=== PATIENT | female | born 1955 | race Caucasian/White ===

== ENCOUNTER 2017-10-02 10:01 | Inpatient (IN) | payer BC ==
[~2017-10-02] VITALS: Ht 170.2 cm; Wt 87.5 kg
[~2017-10-02 10:01] MED LIST: COQ-10100 MG PO; ECHINACEA500 MG PO; INVOKANA300 MG PO; LANTUS100 UNITS/ SUB-Q; LISINOPRIL2.5 MG PO; METFORMIN HCL1000 MG PO; METROGEL55 GM TOP; MOBIC7.5 MG PO
[2017-10-02] MEDS ORDERED: TRESIBA FL100 UNIT/1 SUB-Q (12:11)
[2017-10-02] MEDS ORDERED: ALPHA LIPOIC A300 MG PO (12:12)
--- NOTE | 2017-10-02 12:50 | NUR ---
62 yr old female PATIENT ADMITTED TO CCU VIA STRETCHER UNDER DR. GOULD WITH DX OF AFIB/RVR HAS BEEN WITH INCREASED SHORTNESS OF BREATH OVER THE PAST 6 WEEKS. UPON ADMIT TO CCU PATIENT IS AWAKE AND ALERT. DENIES CHEST PAIN. IS SHORT OF BREATH WITH EXERTION.
--- NOTE | 2017-10-02 13:35 | NUR ---
TOOK SALAD WELL. STATES SHE FEELS SHORT OF BREATH.
--- NOTE | 2017-10-02 14:20 | NUR ---
ECHO BEING DONE AT BEDSIDE.
--- NOTE | 2017-10-02 14:55 | NUR ---
ECHO COMPLETE. O2 AT 2 L VIA NC APPLIED O2 SAT 89.
[2017-10-02] MEDS ORDERED: FARXIGA10 MG PO (15:56)
[2017-10-02] MEDS ORDERED: RED YEAST RICE600 MG PO (16:08)
--- NOTE | 2017-10-02 16:20 | NUR ---
up to commode to void. UPON RETURN TO BED IS WITH INCREASED SHORTNESS OF BREATH. USING ACM. CRACKLES BASES. DR. GOULD IS AWARE. LASIX 40 MG IV ORDERED.
--- NOTE | 2017-10-02 16:40 | NUR ---
LASIX 40 MG IV GIVEN. CPAP APPLIED WITH 3 L O2 BLED IN. IS ANXIOUS.
--- NOTE | 2017-10-02 16:45 | NUR ---
AFTER CPAP APPLIED IS MORE CALM AND MUCH LESS SHORT OF BREATH.
--- NOTE | 2017-10-02 16:55 | EKG ---
[facility] [address] [facility] [address] [place] [address] Signed Atrial fibrillation with rapid ventricular response Right axis deviation T wave abnormality, consider lateral ischemia Abnormal ECG No previous ECGs available Confirmed by SARAH GOULD MD ([id number]) on 10/02/2017 4:55:10 PM Electronically Signed By: SARAH GOULD MD 10/02/17 1655 PATIENT NAME: LEELA GUDINO Electrocardiogram DATE OF : 51 PHYSICIAN: SARAH GOULD MD REPORT #: [id number] REPORT IS CONFIDENTIAL AND NOT TO BE RELEASED WITHOUT AUTHORIZATION
--- NOTE | 2017-10-02 17:00 | NUR ---
ACCTERE-178. NOVOLOG INSULIN 3 UNITS SQ GIVEN. PT GAVE SELF INSULIN.
--- NOTE | 2017-10-02 17:15 | NUR ---
CPAP OFF NOW ON O2 VIA NC AT 3 L. PATIENT STATES SHE FEELS MUCH BETTER.
--- NOTE | 2017-10-02 17:27 | NUR ---
Medications reconciled using pharmacy records and patient interview
--- NOTE | 2017-10-02 19:30 | NUR ---
PATIENT RESTING QUIETLY WATCHING TV IN HER ROOM WE ARE GETTING REPORT.
--- NOTE | 2017-10-02 20:00 | NUR ---
PATIENT HAS BEEN UP TO THE BATHROOM AND AMBULATED INDEPENDANTLY WITH A NURSE STANDING BY. PATIENT A+O AND STEADY ON HER FEET.
--- NOTE | 2017-10-02 22:00 | NUR ---
PATIENT GETTING READY TO SLEEP, GIVEN MEDS, AND HOOKING UP HER OWN CPAP.VITALS HAVE BEEN STEADY.
--- NOTE | 2017-10-03 | NUR ---
PATIENT SLEEPING QUIETLY. RESPIRATIONS REGULAR ON HER CPAP.
--- NOTE | 2017-10-03 02:00 | NUR ---
PATIENT CONTINUES TO SLEEP QUIETLY WITH REGULAR RESPIRATIONS ON HER OWN CPAP WITH 2L OF O2 BLEED IN.
--- NOTE | 2017-10-03 05:26 | NUR ---
PT UP TO BR TO VOID 400ML. HR UP TO 90'S WITH AMBULATION. REPORTED FEELING A LITTLE LIGHTHEADED.
--- NOTE | 2017-10-03 10:39 | NUR ---
WILL BE TRANSFERRED TO MEDICAL FLOOR TODAY.
--- NOTE | 2017-10-03 11:57 | NUR ---
LEELA HAS BEEN A DIABETIC FOR MANY YEARS. SHE IS FAMILIAR WITH CARBS. SHE DOES NOT EAT PASTA. IF SHE WANTS WHEAT, SHE WILL HAVE A PIECE OF WHOLE GRAIN TOAST. SHE MAKES HER OWN GRANOLA USING OATS AND NUTS AND LOW SUGAR FLAVOR. I GAVE HER A FOLDER INCLUDING "HEART-FAILURE NUTRITION THERAPY" FROM THE [facility], LOW-SODIUM GROCERY SHOPPING LIST, SNACK LIST, LOW-SODIUM TACO SEASONING, AND LIST OF COOKBOOKS. I MENTIONED HER GOAL IS TO STAY UNDER 2000 MG OF SODIUM EVERY DAY. SHE WILL LOOK AT THE LABEL ON HER LOW-CARB TORTILLAS TO SEE HOW MUCH THEY HAVE IN THEM. SHE DOES NOT EAT PORK, THEREFORE RODRIGUEZ AND SAUSAGE ARE AVOIDED. SHE WILL EAT TURKEY RODRIGUEZ. SHE WILL LOOK AT THE SODIUM CONTENT OF THAT, TOO. I SAID TURKEY RODRIGUEZ CAN BE HIGHER IS SODIUM THAN REGULAR RODRIGUEZ! SO DEFINITELY LOOK AT THE LABEL. SHE APPRECIATED THE INFO TOO. SHE WILL DO FINE. SHE IS EXCITED TO TRY THE LOW SODIUM TACO SEASONING. SHE KNOWS HOW TO GET A HOLD OF ME IF SHE HAS MORE QUESTIONS.
--- NOTE | 2017-10-03 12:46 | NUR ---
PT RESTING IN CHAIR-ALERT AND ORIENTED. SHE IS FEELING MUCH BETTER, AND EXPRESSED GREAT SATISFACTION WITH THE CARE SHE HAS RECEIVED. WILL BE MOVING TO M\[place] LATER TODAY. THIS A\FIB IS NEW TO HER, AND SHE IS EXPRESSING DESIRE TO E VERY PROACTIVE IN CARE AND TREATMENT. PT REQUESTED PRAYER, WILL FOLLOW PT NEEDED
--- NOTE | 2017-10-03 13:50 | NUR ---
LEILA HEART FAILURE RN IN TALKING WITH PATIENT ABOUT CHF, CHF YONI WATCHED.
--- NOTE | 2017-10-03 13:55 | NUR ---
NAPPING. NO DISTRESS NOTED. FAMILY IN ROOM.
--- NOTE | 2017-10-03 14:15 | NUR ---
REPORT GIVEN TO [facility]. LASIX 40 MG IV REPEATED PER ORDERS.
--- NOTE | 2017-10-03 14:55 | NUR ---
PT WALKED FROM CCU TO 115 ON OWN. PT STATES SHE CAN FEEL HER HR IS UP A LITTLE VS STABLE THOUGH. HR 92. DENIES CONCERNS. AMBULATES TO BATHROOM INDEPENDENTLY.
--- NOTE | 2017-10-03 15:34 | NUR ---
PT HAS JUST BEEN CHECKED IN BY NURSE CABALLERO
--- NOTE | 2017-10-03 16:56 | NUR ---
PT WALKED IN HOLDEN SEVERAL LAPS AROUND THE UNIT. TOLERATED WELL. USED O2 CANISTER. WALKED WITH SISTER.
--- NOTE | 2017-10-03 18:34 | NUR ---
PT TRANSFERED FROM CCU THIS AFTERNOON. PT INDEPENDENT IN ROOM. WALKED IN HOLDEN. BS WNL. CALLS APPROP.
--- NOTE | 2017-10-03 18:53 | NUR ---
PT DOING WELL. UP IN CHAIR
--- NOTE | 2017-10-03 21:02 | NUR ---
NOTIFIED DR GOULD OF PT'S DECREASED BP. OKAY TO GIVE LOPRESSOR. NO NEW ORDERS AT THIS TIME.
--- NOTE | 2017-10-03 21:20 | NUR ---
PT SITTING UP IN CHAIR. ALERT AND ORIENTED X4. PT REPORTS "FEELING REALLY GOOD." NO SOB. NO EDEMA. GAVE FRESH ICE WATER. CALL LIGHT NEAR PT. NO FURTHER NEEDS AT THIS TIME.
--- NOTE | 2017-10-03 23:50 | NUR ---
PT APPEARS ASLEEP. LIGHTS AND TV OFF IN ROOM. CPAP IN PLACE.
--- NOTE | 2017-10-04 00:48 | NUR ---
PT APPEARS TO BE SLEEPING. CPAP IN PLACE. LIGHTS AND TV OFF IN ROOM.
--- NOTE | 2017-10-04 05:18 | NUR ---
PT HAD UNEVENTFUL NIGHT. NO COMPLAINTS. REPORTS FEELING WELL. INDEPENDANT IN ROOM. ALERT AND ORIENTED X4, PLEASENT DEMEANOR. NO SOB. SHOWERED THIS MORNING. TELE #4.
--- NOTE | 2017-10-04 07:24 | NUR ---
PT AWAKE AND SHOWERED ALREADY. STATES THAT SHE NORMALLY GETS UP BETWEEN 3 AND 4. WILL PUT ON PULSE OX TO HOPEFULLY TITRATE OFF O2 TODAY. PT STATES SHE IS GOING HOME TODAY.
--- NOTE | 2017-10-04 07:31 | NUR ---
PATIENT UP TO CHAIR EATING BREAKFAST. PATIENT SHOWERED EARLIER THIS AM. NO NEEDS AT THIS TIME.
--- NOTE | 2017-10-04 09:10 | NUR ---
ADMINISTERED MORNING MEDS. PT BP STILL SLIGHTLY LOW AT 104, ASYMPTOMATIC. NOVOLOG, LASIX AND POTASSIUM HELD. PT SITTING UP IN CHAIR.
--- NOTE | 2017-10-04 10:15 | NUR ---
30 minutes spent on reinforcing education initiated yesterday on self-care. Daily symptom monitoring and follow up appointments. 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 Given BID 7 day pill reminder box and rational for use. Follow up appointment made with Dr Velazco For 10/11/17 at noon. Discharge checklist initiated, recommend O2 check with patient ambulating on room before discharged.
--- NOTE | 2017-10-04 10:28 | NUR ---
PATIENT SITTING UP IN CHAIR VISITING WITH FRIEND. FRESH ICE WATER GIVEN NO OTHER NEEDS AT THIS TIME.
--- NOTE | 2017-10-04 10:35 | NUR ---
SPOKE WITH PT REGARDING STAYING ATLEAST ONE MORE DAY. PT UNDERSTANDS AND STATES SHE IS OK WITH IT. EDUCATED ON IMPORTANCE OF GETTING HER HR UNDERCONTROL WITH THE CORRECT DOSE OF MEDS.
--- NOTE | 2017-10-04 11:30 | NUR ---
PATIENT AMBULTED IN HALLWAY WITH THIS METER CHANGES RECORDS CLERK.
--- NOTE | 2017-10-04 11:37 | NUR ---
PT WALKING IN HOLDEN WITH DA KIM. PT TOLERATING WELL, HR REMAINING UNDER 100 AND SATS ARE IN LOW 90'S ON RA. STATES SHE IS "DOING BETTER THAN WHEN SITTING". HAS MADE 3 CIRCLES SO FAR.
--- NOTE | 2017-10-04 14:24 | NUR ---
PT SITTING IN CHAIR, LOOKS RESTED AND SAID SHE WAS FEELING MUCH BETTER. KNOWS SHE HAS SOME CARDIAC ISSLUES THAT SHE NEEDS TO TAKE CARE OF. SHE IS GOING HOME WITH HER SISTER TOMORROW. EXTENDED A BLESSING, WILL FOLLOW NEEDED
--- NOTE | 2017-10-04 14:41 | NUR ---
PATIENT UP IN THE CHAIR, WATER PITCHER FILLED UP FOR HER AT THIS TIME, PATIENT DENIES OTHER NEEDS.
--- NOTE | 2017-10-04 15:03 | NUR ---
PT SITTING UP IN CHAIR VISITING WITH FRIEND. ADMINISTERED LASIX. PT HOMAR SCHILLING.S
--- NOTE | 2017-10-04 15:07 | NUR ---
PATIENT SITTING UP IN CHAIR VISITING WITH A FRIEND. NO OTHER NEEDS AT THIS TIME.
--- NOTE | 2017-10-04 17:12 | NUR ---
PATIENT UP AMBULATING IN THE HALLWAY. FRESH ICE WATER GIVEN.
--- NOTE | 2017-10-04 18:01 | NUR ---
PT WALKING IN HALLWAYS. TOLERATING WELL. SATS HOLDING. ADMINISTERED ONE UNIT INSULIN.
--- NOTE | 2017-10-04 19:15 | NUR ---
RECEIVED REPORT FROM DAY SHIFT RN. PATIENT IS UP WALKING IN THE ROOM. PATIENT IS STEADY ON HER FEET. PATIENT DENIES ANY NEEDS AT THIS TIME. CALL LIGHT IN REACH.
--- NOTE | 2017-10-04 20:00 | NUR ---
patient in bed doing well. whiteboard updated, room tidied. patient declined fresh ice water
--- NOTE | 2017-10-04 21:51 | NUR ---
PATIENT ASSESMENT COMPLETED. PATIENTS BP IS ON THE LOWER END. PLACED CALL TO HOSPITALIST, GOT VERBAL CONFORMATION TO GO AHEAD AND GIVEN LOPRESSOR. ALL EVENING MEDCIATIONS GIVEN PER ORDER. RT IN THE ROOM AND ASSISTED IN MAKING SURE PATIENTS HOME CPAP IS SET UP. PATIENT DENIES ANY NEEDS AT THIS TIME. CALL LIGHT IS WITHIN REACH.
--- NOTE | 2017-10-05 | NUR ---
patient asleep in bed. does not need anything at this time.
--- NOTE | 2017-10-05 00:12 | NUR ---
PATIENT IS RESTING IN BED WITH EYSE CLOSED, RR 17. PATIENT IS WEARING HOME CPAP. CALL LIGHT IN REACH.
--- NOTE | 2017-10-05 01:14 | NUR ---
PT IS SLEEPING AT THIS TIME.
--- NOTE | 2017-10-05 02:21 | NUR ---
PATIENT ASLEEP IN BED.
--- NOTE | 2017-10-05 03:33 | NUR ---
PT IS AWAKE IN BED READING A BOOK. PT HAS NO COMPLAINTS AT ALL AT THIS TIME. ALL LOBES ARE CLEAR AT THIS TIME, PT DENIES SOB AND PAIN. NO NEW CONCERNS AT THIS TIME.
--- NOTE | 2017-10-05 04:15 | NUR ---
PATIENT ASLEEP IN BED. DOES NOT NEED ANYTHING AT THIS TIME.
--- NOTE | 2017-10-05 06:13 | NUR ---
V/S ARE WDL, PT DENIED SOB SINCE I HAVE ASSUMED CARE OF HER AT ABOUT 0015. ALL LOBES WERE CLEAR FOR MY ASSESSMENT. PT SEEMED TO HAVE SLEPT MOST OF THIS SHIFT. BG AT 2100 WAS 291 AND RECEIVED 7 UNITS OF NOVOLOG FROM PREVIOUS RN. AT AROUND 0530 PT STATED TO ME THAT HER SISTER CONTRACTED LICE FROM THE COUCH IN HER ROOM, AND THAT SHE WANTED IT TREATED WITH SOMETHING. AFTER TALKING TO WHEAT GROWER AND DOING SOME LICE LIFE CYCLE RESEARCH ON THE [employer] WEBSITE I WENT BACK TO THE ROOM TO INFORM THE PT THAT WE WILL TREAT THE COUCH BUT THAT THERE IS A GOOD POSSIBILITY THAT HER SISTER CONTRACTED THE HEAD LICE SOMEWHERE OTHER THAN THE COUCH IN ROOM 115. PT AT THAT TIME STATED THAT HER SISTER CONTRACTED HER HEAD LICE FORM THE HOTEL BUT SHE JUST WANTED TO INFORM US SINCE HER SITSTER HAD LAID HER HEAD DOWN ON THE COUCH. ENVIRONMENTAL SERVICES WILL CLEAN THE COUCH THIS MORNING.
--- NOTE | 2017-10-05 07:40 | NUR ---
BEDSIDE REPORT RECEIVED FROM YANI. PATIENT AWAKE SITTING IN BED. DENIED ANY SOB, NAUSEA OR PAIN. NO APPARENT DISTRESS NOTED. CBG TAKEN. PATIENT IS EATING BREAKFAST AT THIS TIME, SISTER AT BEDSIDE.
--- NOTE | 2017-10-05 07:54 | NUR ---
REPORT RECEIVED FROM HERLINDA. PATIENT RESTING IN BED APPEARS TO BE ASLEEP. RR EVEN/UNLABORED. NO APPARENT DISTRESS NOTED.
--- NOTE | 2017-10-05 08:31 | NUR ---
IN TO ROOM TO ASSESS PATIENT. PATIENT REPORTS NO PAIN, NO SOB. SHIF ASSESSMENT DONE. NO PERIPHERAL EDEMA, LUNGS CLEAR. HR IRREGULAR. PATIENT DENIES ANY DISCOMFORT. MORNING MEDS ADMINISTERED. PATIENT RESTING IN BED WATCHING TV.
--- NOTE | 2017-10-05 10:05 | NUR ---
PT IS SITTING UP IN BED SAFELY WITH CALL LIGHT IN REACH. PT HAS ALREADY SHOWERED EARLIER THIS MORNING AND HAS WALKED A TOTAL OF 4 LAPS . PT ASKED FOR MORE ICE WATER
[2017-10-05] MEDS ORDERED: ELIQUIS5 MG PO (11:26)
[2017-10-05] MEDS ORDERED: METOPROLOL SUC200 MG PO (11:27)
[2017-10-05] MEDS ORDERED: TORSEMIDE20 MG PO (11:30)
[2017-10-05] MEDS ORDERED: POTASSIUM CHLO20 ME1 PO (11:38)
--- NOTE | 2017-10-05 12:39 | NUR ---
PT SITTING ON SIDE OF BED, VISITING WITH HER SISTER FIDENCIO. SHE EXPECTS TO BE DC'D TODAY. SAYS SHE IS FEELING GREAT. GOOD VISIT, EXTENDED A BLESSING.
--- NOTE | 2017-10-09 12:04 | NUR ---
Follow up call completed. Prachi states she has been feeling really good but is tired today. She believes that is a side effect-discussed the effect of beta familia and encouraged patient to get through this phase and continue medication. She has picked up new scripts including Torsemide. Has been monitoring weights QA and has loss more weight. Today's weight #182. She agrees to attend follow up appointment with PCP. Has been working on low sodium diet and verbalized understanding of need to decrease processed high salt foods. She is interested in monitoring her afib at home, recommended she look on line for FDA approved devices for smart phone that she can share data with her physician. She will call back in 6 weeks if released for cardiac rehab program.
== END 2017-10-05 12:20 | disposition home or self-care (01) | DRG 310 ==
LOC: ED 10:01 → CCU 12:26 → MS 10-03 14:35
PROVIDERS: ADMIT Internal Medicine
DX: I48.0 Paroxysmal atrial fibrillation (principal); E11.9 Type 2 diabetes mellitus without complications; Z79.4 Long term (current) use of insulin; G47.33 Obstructive sleep apnea (adult) (pediatric); E78.5 Hyperlipidemia, unspecified; I50.9 Heart failure, unspecified
CPT/HCPCS: 36415; 71010; 80048; 80053; 80069; 81001; 83735; 83880; 84484; 85025; 85610; 93005; 93010; 93306; 96374; 96375; 99285

== ENCOUNTER → 2018-02-17 | Emergency (ER) | payer BC ==
[~2018-02-17] VITALS: Ht 170.2 cm; Wt 87.5 kg
[~2018-02-17] MED LIST changes: +ALPHA LIPOIC A300 MG PO; +ATORVASTATIN CA10 MG PO; +ELIQUIS5 MG PO; +FARXIGA10 MG PO; +METOPROLOL SUC200 MG PO; +POTASSIUM CHLO20 ME1 PO; +RED YEAST RICE600 MG PO; +TORSEMIDE20 MG PO; +TRESIBA FL100 UNIT/1 SUB-Q
--- OUTSIDE RECORDS SUMMARY | ~2018-02-17 | XMS | Encounter Summary ---
Demographics + + + | Address | [address] | | | [place] [address] | + + + | Home Phone | | + + + | Preferred Language | Unknown | + + + | Marital Status | Single | + + + | Quaker Affiliation | 1001 | + + + | Race | Unknown | + + + | Ethnic Group | Unknown | + + + Author + + + | Author | [facility] | | | and [place] | + + + | Organization | [facility] | | | and [...] [address] | | | | | [place] [address] | | + + + + + Care Team Providers + +------+ + | Care Teletypesetter Operator Name | Role | Phone | + +------+ + | Chris Swanson DO | PCP | Unavailable | + +------+ + Reason for Visit Auth/Cert +--------+--------+ + + + + | Status | Reason | Specialty | Diagnoses / | Referred By | Referred To | | | | | Procedures | Contact | Contact | +--------+--------+ + + + + | | | | Diagnoses | | [place], | | | | | Atrial | | Sheri Howell MD | | | | | fibrillation | | [address] | | | | | , | | [address] | | | | | unspecified | | [place] | | | | | type (HCC) | | [phone] Phone: | | | | | Atrial | | [phone] | | | | | fibrillation | | Fax: | | | | | , | | [phone] | | | | | unspecified | | | | | | | type (HCC) | | | | | | | [I48.91] | | | | | | | Procedures | | | | | | | NC | | | | | | | CARDIOVERSIO | | | | | | | N ELECTIVE | | | | | | | ARRHYTHMIA | | | | | | | EXTERNAL NC | | | | | | | ECHO | | | | | | | TRANSESOPHAG | | | | | | | R-T 2D | | | | | | | W/PRB IMG | | | | | | | ACQUDANA I&R | | | +--------+--------+ + + + + Encounter Details +--------+ + + + + | Date | Type | Department | Care Team | Description | +--------+ + + + + | 01/08/ | Anesthesia | [facility] | Tomas Beyer, | | | 2018 | Event | [facility] | [facility] [address] | | | | | ADMIT AND RECOVERY | [place] [address] | | | | | [address] | [phone] | | | | | [place], [place] | | | | | | [address] | | | | | | [phone] | | | +--------+ + + + + Anesthesia Record + + + + + | Procedure Name | Responsible | Anesthesia Start | Anesthesia Stop Time | | | Anesthesiologist | Time | | + + + + + | ECHO - | Tomas Beyer CRNA | 01/08/18 1329 | 01/08/18 1345 | | TRANSESEOPHAGEAL/CAR | | | | | DIOVERSION | | | | | ([id number]) (N/A | | | | | Mouth) | | | | + + + + + +----+---+ + + | Da | T | Event | Comment | | te | i | | | | | m | | | | | e | | | +----+---+ + + | 03 | 1 | An Start | Reassessment prior to anesthesia induction/procedure. | | /1 | 3 | | | | 9/ | 2 | | | | 20 | 9 | | | | 18 | | | | +----+---+ + + | | 1 | Pre-Procedu | | | | 3 | ral Timeout | | | | 3 | Completed | | | | 3 | | | +----+---+ + + | | 1 | Preoxygenat | | | | 3 | ed | | | | 3 | | | | | 3 | | | +----+---+ + + | | 1 | An | | | | 3 | Induction | | | | 3 | | | | | 3 | | | +----+---+ + + | | 1 | GOLDEN Probe | | | | 3 | Placement | | | | 3 | | | | | 4 | | | +----+---+ + + | | 1 | GOLDEN Probe | | | | 3 | Removed | | | | 3 | | | | | 7 | | | +----+---+ + + | | 1 | Cardioversi | Unsuccesful at 300 | | | 3 | on | | | | 3 | | | | | 7 | | | +----+---+ + + | | 1 | Cardioversi | Unsuccessful 200J | | | 3 | on | | | | 3 | | | | | 7 | | | +----+---+ + + | | 1 | Cardioversi | Unsuccesful at 360 | | | 3 | on | | | | 3 | | | | | 8 | | | +----+---+ + + | | 1 | Moving | | | | 3 | Purposefull | | | | 4 | y | | | | 4 | | | +----+---+ + + | | 1 | An Stop | Patient handed off to nurseSavage VSS, maintaining patent airway. | | | 3 | | Conversant w staff. Neuro exam negative | | | 5 | | | +----+---+ + + +------+ | Meds | +------+ + +--------+ | Name | Total | + +--------+ | lidocaine 2% | 40 mg | + +--------+ | propofol | 100 mg | + +--------+ | sodium chloride 0.9% (NS) | 250 mL | | infusion | | + +--------+ + + | Name | + + | O2 Flow Rate (L/Min) | + + + + | No blood administrations on file. | + + +--------+ + + + | Type | Details | Placement | Removal | +--------+ + + + | Periph | 01/08/18; 1120; Right; Posterior | 01/08/18 1120 by | 01/08/18 1520 by | | renel | (dorsal); Hand; [id number] | Rika Hutson | Rika Hutson | | IV | catheter system; 20 gauge, 1 in | Avelino RN | ONIEL You | | | length; Chemistry; 0; intradermal | | | | | injection, tolerated well, | | | | | appears comfortable; no longer | | | | | indicated, site care per | | | | | policy/procedure, catheter/device | | | | | intact; healing within | | | | | expectations; 01/08/18; 1520 | | | +--------+ + + + in this encounter Social History + +-------+ +--------+------+ | Tobacco Use | Types | Packs/Day | Years | Date | | | | | Used | | + +-------+ +--------+------+ | Never Smoker | | | | | + +-------+ +--------+------+ + +---+---+---+ | Smokeless Tobacco: | | | | | Never Used | | | | + +---+---+---+ + + +---------+ + | Alcohol Use [...] on file | | + + + as of this encounter Plan of Treatment +--------+ + + + + | Date | Type | Specialty | Care Team | Description | +--------+ + + + + | 02/21/ | Office | Cardiology | [place] | | | 2018 | Visit | | TASHA Funes [address] | | | | | | [place] [address] | | | | | | [phone] | | | | | | | | +--------+ + + + + | 03/26/ | Appointment | Radiology | Sheri Hernandez | | | 2017 | | | MD Dante [address] | | | | | | [address] [place] | | | | | | [address] | | | | | | | | +--------+ + + + + | 03/26/ | Office | Cardiology | Sheri Hernandez | | | 2017 | Visit | | MD Dante [address] | | | | | | [address] [place] | | | | | | [address] | | | | | | | | +--------+ + + + + | 06/11/ | Office | Sleep Medicine | Janay Kapoor MD | | | 2017 | Visit | | [address] | | | | | | [place] | | | | | | [phone] | | | | | | | | +--------+ + + + + as of this encounter Visit Diagnoses Not on filein this encounter Administered Medications + +--------+ +-------+------+------+ | Medication Order | MAR | Action | Dose | Rate | Site | | | Action | Date | | | | + +--------+ +-------+------+------+ | lidocaine (PF) 2% injection | Given | | 40 mg | | | | Intravenous, PRN, Starting Mon | | 8 13:33 | | | | | 01/08/18 at 1333, Anesthesia | | PDT | | | | | Intra-op | | | | | | + +--------+ +-------+------+------+ +---+---+ | | | +---+---+ + +-------+ +-------+---+---+ | propofol (DIPRIVAN) injection | Given | | 50 mg | | | | Intravenous, PRN, Starting Mon | | 8 13:33 | | | | | 18 at 1333, Anesthesia | | PDT | | | | | Intra-op | | | | | | + +-------+ +-------+---+---+ +-------+ +-------+---+---+ | Given | | 30 mg | | | | | 8 13:34 | | | | | | PDT | | | | +-------+ +-------+---+---+ | Given | | 20 mg | | | | | 8 13:37 | | | | | | PDT | | | | +-------+ +-------+---+---+ +---+---+ | | | +---+---+ + +---------+ +---+---+---+ | sodium chloride 0.9% (NS) | New Bag | | | | | | infusion at 100 mL/hr, | | 8 13:17 | | | | | Intravenous, INTELLECTUAL PROPERTY COUNSEL, Starting | | PDT | | | | | 01/08/18 at 1103, For 1 dose, | | | | | | | Pre-op | | | | | | + +---------+ +---+---+---+ +---+---+ | | | +---+---+ in this encounter"
--- OUTSIDE RECORDS SUMMARY | ~2018-02-17 | XMS | Encounter Summary ---
Demographics + + + | Address | [address] | | | [place] [address] | + + + | Home Phone | | + + + | Preferred Language | Unknown | + + + | Marital Status | Single | + + + | Mormon Affiliation | 1001 | + + + | Race | Unknown | + + + | Ethnic Group | Unknown | + + + Author + + + | Author | [facility] | | | and [place] | + + + | Organization | [facility] | | | [...] | Ata Stephens | ECON | [address] | | | | | [place] [address] | | + + + + + Care Team Providers + +------+ + | Care Senior Network Security Engineer Name | Role | Phone | + +------+ + | Chris Swanson DO | PCP | Unavailable | + +------+ + Reason for Visit + + + | Reason | Comments | + + + | New Patient | atrial fibrillation | + + + Evaluate & Treat (Routine) + +--------+ + + + + | Status | Reason | Specialty | Diagnoses / | Referred By | Referred To | | | | | Procedures | Contact | Contact | + +--------+ + + + + | Authorized | | Cardiology | Diagnoses | Kiki, | Johnh Lexi | | | | | Atrial | Chris Hutson, | Cardiology | | | | | fibrillation | DO [address] | [place] | | | | | ([facility]) afib | [address] [facility] | [address] | | | | | Procedures | [place], [place] | [address] [place] [address] | | | | | WEAVING PROFESSOR consult | [address] | [place] | | | | | | Phone: | [phone] | | | | | | [phone] | Phone: | | | | | | Fax: | [phone] | | | | | | [phone] | Fax: | | | | | | | [phone] | + +--------+ + + + + Encounter Details +--------+---------+ + + + | Date | Type | Department | Care Team | Description | +--------+---------+ + + + | 12/27/ | Office | [place] | Sheri Hernandez | Atrial fibrillation, | | 2018 | Visit | CARDIOLOGY [facility] | MD Dante [address] | unspecified type | | | | [place] | [address] [place] | (HCC) (Primary Dx); | | | | [address] [place] | [address] | Cardiomyopathy, | | | | [address] | | unspecified type | | | | [phone] | | (HCC); | | | | | | Hyperlipidemia, | | | | | | unspecified | | | | | | hyperlipidemia type | +--------+---------+ + + + Social History + +-------+ +--------+------+ [...] + + + as of this encounter Last Filed Vital Signs + + + + | Vital Sign | Reading | Time Taken | + + + + | Blood Pressure | 104/72 | 12/27/2017910 PST | + + + + | Pulse | 79 | 12/27/2017910 PST | + + + + | Temperature | - | - | + + + + | Respiratory Rate | - | - | + + + + | Oxygen Saturation | - | - | + + + + | Inhaled Oxygen | - | - | | Concentration | | | + + + + | Weight | 91.2 kg (201 lb) | 12/27/2017910 PST | + + + + | Height | 171.5 cm (5' 7.5") | 12/27/2017910 PST | + + + + | Body Mass Index | 31.02 | 12/27/2017910 PST | + + + + in this encounter Instructions Patient Instructions - Rochelle Coreas RN - 12/27/2017 09 PSTStart Lipitor 10 mg nigh tly. Type of Procedure: GOLDEN/Cardioversion Procedure Date & Time: 01/08/18 at 1:[address] Hernandez Check-in Time: 11:00 am (2 hours prior to procedure or 3-4 hours for hydration/Vancomycin/c omplexity-MIDDLEWARE CONSULTANT, IV Starts, admit paperwork, labs) Location: [facility] at [address] (5th floor [address]) [place] [address] Anticipated recovery: You will receive light sedation during your procedure therefore you must have an escort imm ediately available at discharge and for 24 hours following. Patients will not be discharged without a designated haul truck driver. We anticipate you to be discharged to home 1-2 hours after the procedure or possibly an overnight stay in the hospital for medical observation. The sarabjit foster may encourage you to stay locally if you live greater than 60 miles from [place] after y our procedure. Medication instructions: DO NOT stop your Eliquis. Make sure to take it the morning of the procedure. You may take all of your normal medications with a sip of water only the morning of the pro cedure except the following medications: torsemide and potassium In anticipation of a possible overnight stay, please bring your medications along with you. Additional instructions: Nothing to eat or drink after 5:00 am. Please do not use nicotine, vape, or e-cigarettes after 5:00 am. Please shower the night before or morning of procedure. in this encounter Progress Notes Sheri Hernandez MD - 12/27/2017 0900 PSTFormatting of this note may be different from t ilana original. PATIENT NAME: Prachi Overton : 1955: AGE: 62 y.o. PRIMARY CARE: Chris Swanson Date of Service: 12/27/2017 CHIEF COMPLAINT: Chief Complaint Patient presents with New Patient atrial fibrillation CURRENT ASSESSMENT AND PLAN Atrial fibrillation AF persists although with good rate control. I think it is worth trying to cardiovert her. Plan: GOLDEN/CV is scheduled for next week Cardiomyopathy Hopefully this is a tachycardia induced CM and will resolve with rate control. We will loo k at her LV function with the GOLDEN when she undergoes CV. Hyperlipidemia We discussed the merits of a statin, she is actually amenable to trying one. Plan: Lipitor 10mg daily Repeat lipids with PCP in 3 months CARDIAC PROBLEM OVERVIEW 1. Congestive heart failure CXR 11/01/17 - cardiac silhouette enlarged, question congestive failure Torsemide 20 mg qd ECHO 10/05/17 - mild LVE with EF 35-40%, global hypokinesis. 2. Atrial fibrillation Eliquis 5mg bid Metoprolol 200 qhs 3. Hypertension 4. Diabetes mellitus Type 2 5. Sleep Apnea 6. Hyperlipidemia Red yeast rice 600 mg bid FOLLOWUP GOLDEN/CV as scheduled MEDICATION ADJUSTMENTS New Prescriptions ATORVASTATIN (LIPITOR) 10 MG TABLET Take 1 tablet by mouth Daily. Medications Discontinued During This Encounter Medication Reason Ascorbic Acid (VITAMIN C) 100 MG tablet Patient Not Taking Calcium Carbonate-Vitamin D (CALCIUM PLUS VITAMIN D PO) Patient Not Taking cholecalciferol (VITAMIN D-3) 400 units tablet Patient Not Taking metformin (GLUCOPHAGE) 1000 MG tablet Patient Not Taking NEW ORDERS Orders Placed This Encounter Procedures ECG 12 lead HISTORY OF PRESENT ILLNESS 62 y.o. year old female with recent hospitalization for CHF in the setting of AF RVR. Dr. Swanson requests evaluation and management. Pt presented to [facility] 3 months ago with 6 weeks of dyspnea. She was found to be in AF RVR and to have CHF. EKG was abnormal showing anterolateral T wave inversion, troponins were negative, BNP only mildly elevated at 296. An echo was performed demonstratin g mild LVE with EF 35-40%, global hypokinesis. This also showed a myxomatous appearing mitr al valve with moderate regurgitation. PA pressures were normal, RV was normal. Moderate LA E. She was seen in follow up 1 week later by her PCP; the note states CHF resolved but does not mention if AF persisted. Prior to this she had a cardiac history of ASD repaired at age 16. She was followed by the same director of federal sales with annual echos until 2015. Unfortunately those records were not avail able to us. She states that her EKG has been abnormal since the ASD repair. She had a work up for chest pain in 2012 which was reportedly unremarkable and eventually attributed to ch olecystitis. She has not had chest pain as part of this presentation. Her cardiac risk factors are DM, hyperlipidemia and obesity. Her family history is notable for a brother who from complications of what sounds like a non ischemic cardiomyopathy . At this time she states that she feels wonderful. She has no dyspnea whatsoever and is abdoulaye hartman that she is in AF. She is compliant with her anticoagulation. MEDICAL, SURGICAL, AND PERSONAL HISTORY Past Medical, Surgical, Family, and Social History are reviewed and updated 12/27/2017 in EPI C. CURRENT MEDICATIONS Outpatient Encounter Prescriptions as of 12/27/2017 Medication Sig Dispense Refill Alpha-Lipoic Acid 300 MG CAPS Take 600 mg by mouth Daily. apixaban (ELIQUIS) 5 mg tablet Take 5 mg by mouth 2 times daily. [DISCONTINUED] Ascorbic Acid (VITAMIN C) 100 MG tablet Take 400 mg by mouth Daily. atorvaSTATin (LIPITOR) 10 mg tablet Take 1 tablet by mouth Daily. 90 tablet 3 B Complex Vitamins (B COMPLEX 50) TABS Take 1 tablet by mouth Daily. [DISCONTINUED] Calcium Carbonate-Vitamin D (CALCIUM PLUS VITAMIN D PO) Take 1 tablet by mouth Daily. [DISCONTINUED] cholecalciferol (VITAMIN D-3) 400 units tablet Take 400 Units by mouth D aily. Coenzyme Q10 (CO Q-10) 100 MG CAPS Take 2 capsules by mouth Daily. dapagliflozin (FARXIGA) 10 mg tablet Take 10 mg by mouth every morning. ECHINACEA EXTRACT PO Take by mouth as needed. ibuprofen (ADVIL,MOTRIN) 800 MG tablet Take 800 mg by mouth as needed for Pain. insulin degludec (TRESIBA FLEXTOUCH) 100 units/mL injection Inject 38 Units under the s kin nightly. [DISCONTINUED] metformin (GLUCOPHAGE) 1000 MG tablet Take 1,000 mg by mouth 2 times maximilian ly. (Patient not taking: Reported on 12/27/2017) metoprolol succinate (TOPROL-XL) 200 mg ER tablet Take 200 mg by mouth nightly. metroNIDAZOLE (METROGEL) 1 % gel Use as directed potassium chloride (KLOR-CON M20) 20 mEq ER tablet Take 20 mEq by mouth Daily. Red Yeast Rice 600 MG CAPS Take 1 capsule by mouth 2 times daily. Respiratory Therapy Supplies [facility] ResMed S10 auto CPAP 7-14 cm H2O. Heater and Humidifi er. Heated Tubing. All necessary supplies. She will have a mask fit appt here to see if we c an find a better fitting mask for her. AHI 13.3. Diagnosis Code(s) 327.23. Length of Need 99 months. Please send order to [facility]. 1 each 99 torsemide (DEMADEX) 20 mg tablet Take 20 mg by mouth every morning. No facility-administered encounter medications on file as of 12/27/2017. Please note [facility] has a flaw in which medication corrections are listed as if they were disc ontinued at the time of the visit. I did not "discontinue" any the above medications unless noted in my assessment and plan; rather the patient was either not on these medications upon arrival today or I made refills or dose adjustments as otherwise noted. ALLERGIES Allergies Allergen Reactions Statins Severe muscle pain ROS 12 point ROS was completed and is negative except fatigue, headaches, hearing loss, cough, urgency, frequency and dizziness. PHYSICAL EXAM BP 104/72 Comment: left | Pulse 79 Comment: per EKG | Ht 1.715 m (5' 7.5") | Wt 91.2 kg (2 01 lb) | BMI 31.02 kg/m Body mass index is 31.02 kg/m. GENERAL: pleasant, well appearing HEENT: The oropharynx and conjunctivae are clear. Mucous membranes moist. EEOMI. NECK: Supple. Carotids are 2+ and brisk bilaterally without bruits. CHEST: Good inspiratory effort with no crackles, ronchi, or wheezes. CARDIAC: Irregularly irregular rhythm. No murmur, rubs, or gallops. ABDOMEN: Obese. Soft, non-tender, nondistended with normal, active bowel sounds. Unable to palpate abdominal aorta. EXTREMITIES: No clubbing, cyanosis, or edema. PULSES: Boots on - unable to palpate PT pulses NEUROLOGIC: Alert and oriented 3/3, Mood and affect are normal SKIN: No rashes or skin breakdown. MUSCULOSKELETAL: normal ambulation LABS No results found for: WBC, HGB, HCT, PLT, CHOL, TRIG, HDL, ALT, AST, NA, K, CL, CREA, BUN, CO2, TSH, PSA, INR, GLUF EKG: Atrial fibrillation rate 79 bpm, diffuse T-wave inversions in all leads except AVL and AVR Thank you for allowing me to participate in the care of this patient. If you have any ques tions, please do not hesitate to contact me. By signing my name below, I, Thelma Álvarez, attest that this documentation has been prepared under the direction and in the presence of Sheri Hernandez MD. Electronically Signed: Ellie Bear. 12/27/2017. 18:40. Signed by: Sheri Hernandez MD, [facility] 12/27/2017, 18:40in this encounter Plan of Treatment +--------+ + + + + | Date | Type | Specialty | Care Team | Description | +--------+ + + + + | 02/21/ | Office | Cardiology | [place] | | | 2017 | Visit | | TASHA Funes [address] | [address] | | | | | | [place] [address] | | | | | | [phone] | | | | | | | | +--------+ + + + + | 03/26/ | Appointment | Radiology | Sheri Hernandez | | | 2017 | | | MD Robert Howell [address] | | | | | | [address] [place] | | | | | | [address] | | | | | | | | +--------+ + + + + | 03/26/ | Office | Cardiology | Sheri Hernandez | | | 2017 | Visit | | MD Dante [address] | | | | | | [address] [place] | | | | | | [address] | | | | | | | | +--------+ + + + + | 06/11/ | Office | Sleep Medicine | Janay Kapoor MD | | | 2017 | Visit | | [address] | | | | | | [place] | | | | | | [address] | | | | | | | | +--------+ + + + + as of this encounter Results ECG 12 lead (12/27/2017 0900) + + | Narrative | + + | Cecil Cerrato CMA 12/27/2017 8:58 See scanned tracing for the provider's | | interpretation of EKG. | + + ECG - EXTERNAL SCAN (12/27/2017) + + | Narrative | + + | Ordered by an unspecified provider. | + + in this encounter Visit Diagnoses + + | Diagnosis | + + | Atrial fibrillation, unspecified type (HCC) - Primary | + + | Cardiomyopathy, unspecified type (HCC) | + + | Hyperlipidemia, unspecified hyperlipidemia type | + +
--- OUTSIDE RECORDS SUMMARY | ~2018-02-17 | XMS | Encounter Summary ---
Demographics + + + | Address | [address] | | | [place] [address] | + + + | Home Phone | | + + + | Preferred Language | Unknown | + + + | Marital Status | Single | + + + | Yarsani Affiliation | 1001 | + + + | Race | Unknown | + + + | Ethnic Group | Unknown | + + + Author + + + | Author | [facility] | | | and [place] | + + + | Organization | [facility] | | | and [...] | | | | | [place] [address] | | + + + + + Care Team Providers + +------+ + | Care Technical Sales Support Specialist Name | Role | Phone | + +------+ + | Chris Swanson DO | PCP | Unavailable | + +------+ + Reason for Visit +--------+ + | Reason | Comments | +--------+ + | Other | | +--------+ + Encounter Details +--------+ + + + + | Date | Type | Department | Care Team | Description | +--------+ + + + + | 02/14/ | Telephone | [place] | Sheri Hernandez | Other | | 2018 | | CARDIOLOGY [facility] | MD Dante [address] | | | | | [place] | [address] [place] | | | | | [address] [place] | [address] | | | | | [address] | | | | | | [phone] | | | +--------+ + + + + Social History + +-------+ [...] | | | | | [place] [address] | | | | | | [phone] | | | | | | | | +--------+ + + + + | 03/26/ | Appointment | Radiology | Sheri Hernandez | | | 2017 | | | MD Dante [address] | | | | | | [address] [place] | | | | | | [address] | | | | | | | | +--------+ + + + + | 03/26/ | Office | Cardiology | Sheri Hernandez | | | 2017 | Visit | | MD Dante [address] | | | | | | [address] [place] | | | | | | [address] | | | | | | | | +--------+ + + + + | 06/11/ | Office | Sleep Medicine | Janay Kapoor MD | | | 2017 | Visit | | [address] | | | | | | [place] | | | | | | [address] | | | | | | | | +--------+ + + + + as of this encounter Visit Diagnoses Not on filein this encounter"
--- OUTSIDE RECORDS SUMMARY | ~2018-02-17 | XMS | Clinical Summary ---
Demographics + + + | Address | [address] | | | [place] [address] | + + + | Home Phone | | + + + | Preferred Language | Unknown | + + + | Marital Status | Single | + + + | Nondenominational Affiliation | 1001 | + + + | Race | Unknown | + + + | Ethnic Group | Unknown | + + + Author + + + | Author | [facility] | | | and Kevonana | + + + | Organization | [facility] | | | and [...] + + + + + | Ata Stehpens | ECON | [address] | | | | | [place] [address] | | + + + + + Care Team Providers + +------+ + | Care Branding Machine Tender Name | Role | Phone | + [...] | | 2017 | Event | | MACHINING MANAGER | | +--------+ + + + + | 01/08/ | Procedure | | | | | 2017 | Pass | | | | +--------+ + + + + | 01/08/ | Surgery | | Sheri Hernandez | ECHO - | | 2017 | | | MD Dante | TRANSESEOPHAGEAL/CAR | | | | | | DIOVERSION | | | | | | ([id number]) | +--------+ + + + + | [...] | Mother | | | stroke and [place] | | | | (Age | | [...] | | | | | [place] [address] | | | | | | [phone] | | | | | | | | +--------+ + + + + | 03/26/ | Appointment | | Sheri Hernandez | | | 2017 | | | MD [place] [address] | | | | | | [address] [place] | | | | | | [address] | | | | | | | | +--------+ + + + + | 03/26/ | Office | | Sheri Hernandez | | | 2017 | Visit | | MD [place] [address] | | | | | | [address] [place] | | | | | | [address] | | | | | | | | +--------+ + + + + | 06/11/ | Office | | Janay Kapoor MD | | | 2018 | Visit | | [address] | | | | | | [place] | | | | | | [address] | | | | | | | [...] | | unspecified type | | | ([id number]) | | | (HCC) | | + [...] + + + | | NNEKA ESCOBAR [address] [place] [address] [place] [address] | + + + + + | Narrative | + + | HEART RATE:78 bpm RR Interval:769 ms Atrial Rate:78 ms P-R Interval:163 ms P | | Duration:0 ms P Horizontal Christopher:-12 deg P Front Christopher:0 deg Q Onset:516 ms QRSD | | Interval:92 ms QT Interval:404 ms QTcB:461 ms QTcF:441 ms QRS Horizontal Christopher:15 deg | | QRS Christopher:91 deg I-40 Horizontal Christopher:42 deg I-40 Front Christopher:70 deg T-40 Horizontal | | Christopher:250 deg T-40 Front Christopher:215 deg T Horizontal Christopher:235 deg T Wave Christopher:258 deg | | S-T Horizontal Christopher:227 deg S-T Front Christopher:254 deg Severity:- ABNORMAL ECG - | | [...] СВЕТЛАНА SMART | | OTONIEL Patient Number [id number] Date | | of Study 01/08/2018 Visit Number [id number] | | Interpreting David | | Sheri RASMUSSEN Number | | Physician FAC Date of | | 1955 Referring Physician Sheri Hernandez MD | | | | [facility] Age 62 | | 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..] | Electronically signed by Sheri Hernandez MD [facility](Interpreting physician) | | on 01/08/2018 03:14 [...] | Electronically signed by Sheri Hernandez MD [facility] physician) | | on 01/08/2018 03:14 PM [...] Laboratory | + + + | | [facility] [address] | | | [place] [address] | + + + Basic Metabolic Panel [...] + -----+ | GLUCOSE | 123 (H)Comment: Surinamese Diabetes | 65 - 99 mg/dL | [...] | + + + | Blood | [facility] [address] | | | [place] [address] | + + + ECG 12 lead [...] | 1954 | [phone] | [place] [address] | | | mishel | | | [address]: | | | | | | | | | | | | | | [phone] | | | | | | | [address] | | + +--------+ +--------+ + +
--- OUTSIDE RECORDS SUMMARY | ~2018-02-17 | XMS | Encounter Summary ---
Demographics + + + | Address | [address] | | | [place] [address] | + + + | Home Phone | | + + + | Preferred Language | Unknown | + + + | Marital Status | Single | + + + | Moravian Affiliation | 1001 | + + + | Race | Unknown | + + + | Ethnic Group | Unknown | + + + Author + + + | Author | [facility] | | | and Kevonana | + + + | Organization | [facility] | | | and [...] | | | | | [place] [address] | | + + + + + Care Team Providers + +------+ + | Care Hospital Manager Name | Role | Phone | + +------+ + | Chris Swanson DO | PCP | Unavailable | + +------+ + Encounter Details +--------+ + + + + | Date | Type | Department | Care Team | Description | +--------+ + + + + | 01/08/ | Procedure | [facility] | | | | 2018 | Pass | [facility] | | | | | | ADMIT AND RECOVERY | | | | | | [address] | | | | | | [place] | | | | | | [address] | | | | | | [phone] | | | +--------+ + + + [...] | | | | | [place] [address] | | | | | | [phone] | | | | | | | | +--------+ + + + + | 03/26/ | Appointment | Radiology | Sheri Hernandez | | | 2017 | | | MD [place] [address] | | | | | | [address] [place] | | | | | | [address] | | | | | | | | +--------+ + + + + | 03/26/ | Office | Cardiology | Sheri Hernandez | | | 2017 | Visit | | MD Dante [address] | | | | | | [address] [place] | | | | | | [address] | | | | | | | | +--------+ + + + + | 06/11/ | Office | Sleep Medicine | Janay Kapoor MD | | | 2017 | Visit | | [address] | | | | | | [place] | | | | | | [address] | | | | | | | | +--------+ + + + + as of this encounter Visit Diagnoses Not on filein this encounter"
--- OUTSIDE RECORDS SUMMARY | ~2018-02-17 | XMS | Encounter Summary ---
Demographics + + + | Address | [address] | | | [place] [address] | + + + | Home Phone | | + + + | Preferred Language | Unknown | + + + | Marital Status | Single | + + + | Anglican Affiliation | 1001 | + + + | Race | Unknown | + + + | Ethnic Group | Unknown | + + + Author + + + | Author | [facility] | | | and Kevonana | + + + | Organization | [facility] | | | [...] [place] | | | | | [place] [address] | | + + + + + Care Team Providers + +------+ + | Care Fireproof Door Assembler Name | Role | Phone | + +------+ + | Chris Swanson DO | PCP | Unavailable | + +------+ + Reason for Referral Diagnostic/Screening (Routine) +--------+--------+ + + + + | Status | Reason | Specialty | Diagnoses / | Referred By | Referred To | | | | | Procedures | Contact | Contact | +--------+--------+ + + + + | Closed | | Radiology | Diagnoses | David, | Ws Echo | | | | | Atrial | Sheri Howell MD | [address] | | | | | fibrillation | [address] | [place] | | | | | , | [address] | [address] | | | | | unspecified | [place] | Phone: | | | | | type (HCC) | [address] | [phone] | | | | | Procedures | Phone: | Fax: | | | | | ECHO | [phone] | [phone] | | | | | Transesophag | Fax: | | | | | | eal (GOLDEN) | [phone] | | +--------+--------+ + + + + Encounter Details +--------+ + + + + | Date | Type | Department | Care Team | Description | +--------+ + + + + | 12/27/ | Ancillary | [facility] [place] | David Sheri | Atrial fibrillation, | | 2018 | Orders | CARDIOLOGY VILMATORuddy | MD Dante [address] | unspecified type | | | | HI4 [address] | [address] [place] | ([facility]) | | | | [place] [address] [place] | [address] | | | | | [address] | | | | | | [phone] | | | +--------+ + + + [...] | | | | | [place] [address] | | | | | | [phone] | | | | | | | | +--------+ + + + + | 03/26/ | Appointment | Radiology | Sheri Hernandez | | | 2017 | | | MD Dante [address] | | | | | | [address] [place] | | | | | | [address] | | | | | | | | +--------+ + + + + | 03/26/ | Office | Cardiology | Sheri Hernandez | | | 2017 | Visit | | MD Dante [address] | | | | | | [address] [place] | | | | | | [address] | | | | | | | | +--------+ + + + + | 06/11/ | Office | Sleep Medicine | Janay Kapoor MD | | | 2017 | Visit | | [address] | | | | | | [place] | | | | | | [address] | | | | | | | | +--------+ + + + + as of this encounter Results ECHO Transesophageal (GOLDEN) (01/08/2018 1344) + +-------+ + | Component | Value | Ref Range | + +-------+ + | LVEF-GOLDEN | 30 | | | TRANSESOPHAGEAL ECHO | | | + +-------+ + + + | Narrative | + + | Transesophageal Echocardiography Report (GOLDEN) Demographics Patient Name | | SHAHAB SWENSON Room Number [facility] СВЕТЛАНА SMART | | OTONIEL Patient Number [id number] Date | | of Study 01/08/2018 Visit Number [id number] | | Interpreting David | | Sheri RASMUSSEN Number | | Physician [facility] Date of | | 1955 Referring Physician Sheri Hernandez MD | | | | [facility] Age 62 | | year(s) 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 | | Procedure Type of Study GOLDEN [...] | Electronically signed by Sheri Hernandez MD [facility](Interpreting physician) on | | 01/08/2018 03:14 [...] СВЕТЛАНА SMART | | OTONIEL Patient Number [id number] Date of Study 01/08/2018 | | Visit Number [id number] Interpreting | | Sheri Hernandez MD Number Physician [facility] Date of | | 1955 Referring Physician Sheri Hernandez MD | | [facility] Age 62 year(s) 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
--- OUTSIDE RECORDS SUMMARY | ~2018-02-17 | XMS | Encounter Summary ---
Demographics + + + | Address | [address] | | | [place] [address] | + + + | Home Phone | | + + + | Preferred Language | Unknown | + + + | Marital Status | Single | + + + | Moravian Affiliation | 1001 | + + + | Race | Unknown | + + + | Ethnic Group | Unknown | + + + Author + + + | Author | [facility] | | | and [place]ana | + + + | Organization | [facility] | | | and [...] SMITH | | | | | [place] [address] | | + + + + + Care Team Providers + +------+ + | Care Vehicle Washer Name | Role | Phone | + +------+ + | Chris Swanson DO | PCP | Unavailable | + +------+ + Reason for Referral Diagnostic/Screening (Routine) + +--------+ + + + + | Status | Reason | Specialty | Diagnoses / | Referred By | Referred To | | | | | Procedures | Contact | Contact | + +--------+ + + + + | Pending | | Radiology | Diagnoses | [facility]ветлан[facility] | | | Review | | | Paroxysmal | [address] | | | | | | atrial | [address]VE | | | | | | fibrillation | [place] | | | | | | ([facility]) | [address] | | | | | | Procedures | Phone: | | | | | | ECHO | [phone] | | | | | | Complete | Fax: | | | | | | | [phone] | | + +--------+ + + + + Diagnostic/Screening (Routine) +--------+--------+ + + + + | Status | Reason | Specialty | Diagnoses / | Referred By | Referred To | | | | | Procedures | Contact | Contact | +--------+--------+ + + + + | Closed | | Radiology | Diagnoses | David, | [facility] | | | | | Atrial | Sheri Howell MD | [address] | | | | | fibrillation | [address] | [place] | | | | | , | [address] | [address] | | | | | unspecified | [place] | Phone: | | | | | type (HCC) | [address] | [phone] | | | | | Procedures | Phone: | Fax: | | | | | ECHO | [phone] | [phone] | | | | | Transesophag | Fax: | | | | | | eal (GOLDEN) | [phone] | | +--------+--------+ + + + + Diagnostic/Screening (Routine) +--------+--------+ + + + + | Status | Reason | Specialty | Diagnoses / | Referred By | Referred To | | | | | Procedures | Contact | Contact | +--------+--------+ + + + + | Closed | | Radiology | Diagnoses | David, | [facility] Echo | | | | | Atrial | Sheri Howell MD | [address] | | | | | fibrillation | [address] | [place] | | | | | , | [address] | [address] | | | | | unspecified | [place] | Phone: | | | | | type (HCC) | [address] | [phone] | | | | | Procedures | Phone: | Fax: | | | | | ECHO | [phone] | [phone] | | | | | Transesophag | Fax: | | | | | | eal (GOLDEN) | [phone] | | +--------+--------+ + + + + Reason for Visit Auth/Cert +--------+--------+ + [...] | | | unspecified | | [place] | | | | | type (HCC) | | [address] Phone: | | | | | Atrial | | [phone] | | | | | fibrillation | | Fax: | | | | | , | | [phone] | | | | | unspecified | | | | | | | type (HCC) | | | | | | | [I48.91] | | | | | | | Procedures | | | | | | | [facility] | | | | | | | CARDIOVERSIO | | | | | | | N ELECTIVE | | | | | | | ARRHYTHMIA | | | | | | | EXTERNAL [facility] | | | | | | | ECHO | | | | | | | TRANSESOPHAG | | | | | | | R-T 2D | | | | | | | W/PRB IMG | | | | | | | ACQUYOLIJ I&R | | | +--------+--------+ + + + + Encounter Details +--------+ + + + + | Date | Type | Department | Care Team | Description | +--------+ + + + + | 01/08/ | Hospital | [facility] | Sheri Hernandez | Paroxysmal atrial | | 2018 | Encounter | [facility] | MD Dante [address] | fibrillation (HCC) | | | | ADMIT AND RECOVERY | [address] [place] | (Primary Dx); Atrial | | | | [address] | [address] | fibrillation, | | | | [place] | | unspecified type | | | | [address] | | (HCC); | | | | [phone] | | Cardiomyopathy, | | | | | | unspecified type | | | | | | (HCC) | +--------+ + + + + Social [...] | Body Mass Index | 31.02 | 01/08/2018 1118 PDT | + + + + in this encounter Discharge Instructions Yuliet Serrano RN - 01/08/2018Formatting of this note may be different from the origin al. Cardioversion/Transesophageal Echocardiography (GOLDEN) You had a GOLDEN and cardioversion today. A Transesophageal echocardiography (GOLDEN) is a test t hat allows your doctor to record images of your heart from inside your esophagus, or food pi pe. These images help your doctor identify and treat problems such as blood clot, infection, disease, or defects in your heart s aden or valves. A cardioversion is an electrical sh ock applied to the chest toreset your heart rhythmback to normal. Your chest wall and ch est muscles may feel sore for a few days. A bruise or burn may appear on the chest, but that will go away within a week. After Your Procedure For a few days, the skin on your chest may feel a little sore, like a mild sunburn. You may treat coleman on chest and back with hydrocortisone cream or aloe. No alcohol, legal decision making or driving for 24 hours. Alternate rest and activity. You can eatand drink again when your throat is no longer numb. Return to your usual di et as prescribed by your physician. You may notice a mild sore throat for the next 24 hours. If this is uncomfortable, you m ay use cephacol lozenges or spray, or ice chips. The day after your procedure, try to take it easy. Take medication as directed. Call your doctor: If you noticeskipped beats, a rapid heartbeat, or chest tightness. The se may be signs that an irregular heartbeat has returned. If you experience any sudden onset of speech difficulty, weakness or paralysis in an arm or leg, or drooping of one side of you face, call 911 and inform them you have signs and sy mptoms of a stroke. Do no delay returning to the hospital and do not drive yourself to the ospital. When to Call Your Doctor Call your doctor right away if you have any of the following: Chest pain Pain, swelling, redness or drainage at the IV insertion site You have a fever, or other signs of infection (redness, swelling, green or yellow draina ge or warmth at the IV site). If you experience any sudden onset of speech difficulty, weakness or paralysis in an arm or leg, or drooping of one side of you face, call 911 and inform them you have signs and sy mptoms of a stroke. Do no delay returning to the hospital and do not drive yourself to the ospital. in this encounter Medications at Time of Discharge + + + +---------+ + + | Medication | Sig. | Disp. | Refills | Start | End Date | | | | | | Date | | + + + +---------+ + + | Alpha-Lipoic Acid | Take 600 mg by mouth | | | | | | 300 MG CAPS | 2 times daily. | | | | | + + + +---------+ + + | apixaban (ELIQUIS) | Take 5 mg by mouth 2 | | | | | | 5 mg tablet | times daily. | | | | | + + + +---------+ + + | atorvaSTATin | Take 1 tablet by | 90 | 3 | 12/28/19 | | | (LIPITOR) 10 mg | mouth Daily. | tablet | | 18 | | | tablet | | | | | | + + + +---------+ + + | B Complex Vitamins | Take 1 tablet by | | | | | | (B COMPLEX 50) TABS | mouth Daily. | | | | | + + + +---------+ + + | Coenzyme Q10 (CO | Take 2 capsules by | | | | | | Q-10) 100 MG CAPS | mouth Daily. | | | | | + + + +---------+ + + | dapagliflozin | Take 10 mg by mouth | | | | | | (FARXIGA) 10 mg | every morning. | | | | | | tablet | | | | | | + + + +---------+ + + | ECHINACEA EXTRACT | Take by mouth as | | | | | | PO | needed. | | | | | + + + +---------+ + + | ibuprofen | Take 800 mg by mouth | | | | | | (ADVIL,MOTRIN) 800 | as needed for Pain. | | | | | | MG tablet | | | | | | + + + +---------+ + + | insulin degludec | Inject 38 Units | | | | | | (TRESIBA FLEXTOUCH) | under the skin | | | | | | 100 units/mL | nightly. | | | | | | injection | | | | | | + + + +---------+ + + | metoprolol | Take 200 mg by mouth | | | | | | succinate | nightly. | | | | | | (TOPROL-XL) 200 mg | | | | | | | ER tablet | | | | | | + + + +---------+ + + | metroNIDAZOLE | Use as directed | | | 07/06/20 | | | (METROGEL) 1 % gel | | | | 12 | | + + + +---------+ + + | potassium chloride | Take 20 mEq by mouth | | | | | | (KLOR-CON M20) 20 | Daily. | | | | | | mEq ER tablet | | | | | | + + + +---------+ + + | Red Yeast Rice 600 | Take 1 capsule by | | | | | | MG CAPS | mouth 2 times daily. | | | | | + + + +---------+ + + | Respiratory | ResMed S10 auto CPAP | 1 each | 99 | 08/14/20 | | | Therapy Supplies | 7-14 cm H2O. Heater | | | 15 | | | MISC | and Humidifier. | | | | | | | Heated Tubing. [...] Home Medical. | | | | | + + + +---------+ + + | torsemide | Take 20 mg by mouth | | | | | | (DEMADEX) 20 mg | every morning. | | | | | | tablet | | | | | | + + + +---------+ + + as of this encounter Plan of Treatment +--------+ + + + + | Date | Type | Specialty | Care Team | Description | +--------+ + + + + | 02/21/ | Office | Cardiology | Kevin Arzateistin | | | 2017 | Visit | | TASHA Funes [address] [place] [address] | | | | | | [place] [address] | | | | | | [phone] | | | | | | | | +--------+ + + + + | 03/26/ | Appointment | Radiology | Sheri Hernandez | | | 2017 | | | MD Robert Howell [address] | | | | | | [address] [place] | | | | | | [address] | | | | | | | | +--------+ + + + + | 03/26/ | Office | Cardiology | Sheri Hernandez | | | 2017 | Visit | | MD Robert Howell [address] | | | | | | [address] [place] | | | | | | [address] | | | | | | | | +--------+ + + + + | 06/11/ | Office | Sleep Medicine | Janay Kapoor MD | | | 2017 | Visit | | [address] | | | | | | [place] | | | | | | [address] | | | | | | | | +--------+ + + + + + +--------+ + + | Name | Priori | Associated Diagnoses | Order Schedule | | | ty | | | + +--------+ + + | EP Cardioversion | Routin | Atrial | Ordered: 01/08/2018 | | | e | fibrillation, | | | | | unspecified type | | | | | ([facility]) | | + +--------+ + + | ECG 12 lead | Routin | Paroxysmal atrial | Expected: | | | e | fibrillation ([facility]) | 01/15/2018, Expires: | | | | | 01/08/2019 | + +--------+ + + | ECHO Complete | Routin | Paroxysmal atrial | Expected: | | | e | fibrillation ([facility]) | 04/10/2018, Expires: | | | | | 01/08/2019 | + +--------+ + + as of this encounter Procedures + +--------+ + + + | Procedure Name | Priori | Date/Time | Associated Diagnosis | Comments | | | ty | | | | + +--------+ + + + | ECHO - | | 01/08/2018 | Atrial | | | TRANSESEOPHAGEAL/CAR | | 1300 PDT | fibrillation, | | | DIOVERSION | | | unspecified type | | | ([id number]) | | | ([facility]) | | + +--------+ + + + in this encounter Results ECG 12 lead (01/08/2018 1415) + + + | Specimen | Performing Laboratory | + + + | | NNEKA TRACE [address] [place] [address] [place] [address] | + + + + + | Narrative | + + | HEART RATE:78 bpm RR Interval:769 ms Atrial Rate:78 ms P-R Interval:163 ms P | | Duration:0 ms P Horizontal Moody:-12 deg P Front Moody:0 deg Q Onset:516 ms QRSD | | Interval:92 ms QT Interval:404 ms QTcB:461 ms QTcF:441 ms QRS Horizontal Moody:15 deg | | QRS Moody:91 deg I-40 Horizontal Moody:42 deg I-40 Front Moody:70 deg T-40 Horizontal | | Moody:250 deg T-40 Front Moody:215 deg T Horizontal Moody:235 deg T Wave Moody:258 deg | | S-T Horizontal Moody:227 deg S-T Front Moody:254 deg Severity:- ABNORMAL ECG - | | INTERP:SINUS RHYTHM INTERP:RIGHT AXIS DEVIATION INTERP:ABNORMAL T, CONSIDER ISCHEMIA, | | DIFFUSE LEADS Electronically signed by: HELEN CHACON 01-11-2018 19:43:58 | + + ECHO Transesophageal (GOLDEN) (01/08/2018 1224) + +-------+ + | Component | Value | Ref Range | + +-------+ + | LVEF-GOLDEN | 30 | | | TRANSESOPHAGEAL ECHO | | | + +-------+ + + + | Narrative | + + | Transesophageal Echocardiography Report (GOLDEN) Demographics Patient Name | | SHAHAB SWENSON Room Number [facility] СВЕТЛАНА SMART | | [place] Patient Number [id number] Date | | of Study 01/08/2018 Visit Number [id number] | | Interpreting David | | Sheri RASMUSSEN Number | | Physician FAC Date of | | 1955 Referring Physician Sheri Hernandez MD | | | | [facility] Age 62 | | year(s) 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 | | Female 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 | | Procedure Type of Study GOLDEN [...] | Electronically signed by Sheri Hernandez MD [facility](Interpreting physician) on | | 01/08/2018 03:14 [...] СВЕТЛАНА SMART | | OTONIEL Patient Number [id number] Date of Study 01/08/2018 | | Visit Number [id number] Interpreting | | Sheri Hernandez MD Number Physician FAC Date of | | 1955 Referring Physician Sheri Hernandez MD | | FAC Age 62 year(s) 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 [address] | + + + + + | Narrative | + + | HEART RATE:90 bpm RR Interval:667 ms Atrial Rate:0 ms P-R Interval: ms P | | Duration:0 ms P Horizontal Moody: deg P Front Moody: deg Q Onset:512 ms QRSD | | Interval:88 ms QT Interval:392 ms QTcB:480 ms QTcF:449 ms QRS Horizontal Moody:-1 deg | | QRS Moody:84 deg I-40 Horizontal Moody:34 deg I-40 Front Moody:78 deg T-40 Horizontal | | Moody:249 deg T-40 Front Moody:242 deg T Horizontal Moody:228 deg T Wave Moody:262 deg | | S-T Horizontal Moody:219 deg S-T Front Moody:257 deg Severity:- ABNORMAL ECG - | | INTERP:ATRIAL FIBRILLATION INTERP:BORDERLINE RIGHT AXIS DEVIATION INTERP:ABNORMAL T, | | CONSIDER ISCHEMIA, DIFFUSE LEADS Electronically signed by: HELEN CHACON | | Haresh 01-11-2018 19:44:09 | + + Basic Metabolic Panel (01/08/2018 1120) [...] + -----+ | GLUCOSE | 123 (H)Comment: French Diabetes | 65 - 99 mg/dL | [...] [address] | | | [place] [address] | + + + in this encounter Visit Diagnoses + + | Diagnosis | + + | Paroxysmal atrial fibrillation (HCC) - Primary | + + | Atrial fibrillation | + + | Atrial fibrillation, unspecified type (HCC) | + + | Cardiomyopathy, unspecified type (HCC) | + + Admitting Diagnoses + + | Diagnosis | + + | Atrial fibrillation, unspecified type (HCC) - Atrial fibrillation, unspecified type | | (HCC) [I48.91] | + + Administered Medications + +--------+ + +------+------+ | Medication Order | MAR | Action | Dose | Rate | Site | | | Action | Date | | | | + +--------+ + +------+------+ | benzocaine (HURRICAINE) 20% | Given | | 2 sprays | | | | non-aerosol spray Topical, PRN, | | 8 13:34 | | | | | Starting 01/08/18 at 1334 | | PDT | | | | + +--------+ + +------+------+ +---+---+ | | | +---+---+ in this encounter
--- OUTSIDE RECORDS SUMMARY | ~2018-02-17 | XMS | Encounter Summary ---
Demographics + + + | Address | [address] | | | [place] [address] | + + + | Home Phone | | + + + | Preferred Language | Unknown | + + + | Marital Status | Single | + + + | Congregational Affiliation | 1001 | + + + | Race | Unknown | + + + | Ethnic Group | Unknown | + + + Author + + + | Author | [facility] | | | and Kevonana | + + + | Organization | [facility] | | | [...] | | | | | [place] [address] | | + + + + + Care Team Providers + +------+ + | Care Grain Unloader Machine Name | Role | Phone | + [...] | | | | Atrial | Chris Hutosn, | Cardiology | | | | | fibrillation | DO [address] | [place] | | | | | ([facility]) afib | [address] [place] | [address] | | | | | Procedures | [place], [place] | [address] [address] | | | | | TOLL BRIDGE OPERATOR consult | [address] | [place] | | | | | | Phone: | [address] | | | | | | [phone] | Phone: | | | | | | Fax: | [phone] | | | | | | [phone] | Fax: | | | | | | | [phone] | + +--------+ + + + + Encounter Details +--------+---------+ + + + | Date | Type | Department | Care Team | Description | +--------+---------+ + + + | 12/27/ | Office | [facility] [place] | Sheri Hernandez | Atrial fibrillation, | | 2018 | Visit | [facility]Y [facility] | MD Dante [address] | unspecified type | | | | HI[address] | [address] [place] | (HCC) (Primary Dx); | | | | [address] [place] | [address] | Cardiomyopathy, | | | | [address] | | unspecified type | | | | [phone] | | (HCC); | | | | [...] to procedure or 3-4 hours for hydration/Vancomycin/c omplexity-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 Patients will not be discharged without a designated stake driver. We anticipate you to be discharged to home 1-2 hours after the procedure or possibly an overnight stay in the hospital for medical observation. The sarabjit foster may encourage you to stay locally if you live greater than 60 miles from [place] after y our procedure. Medication instructions: DO [...] requests evaluation and management. Pt presented to [facility] 3 months ago with 6 weeks of [...] 18. 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 Unfortunately those [...] mouth 2 times daily. Respiratory Therapy Supplies [facility] ResMed S10 auto CPAP 7-14 cm H2O. [...] on file as of 12/27/2017. Please note [facility] has a flaw in which medication [...] 12/27/2017. 18:40. Signed by: Sheri Hernandez MD, [facility] 12/27/2017, 18:40in this encounter Plan of Treatment [...] | | | | | [place] [address] | | | | | | [phone] | | | | | | | | +--------+ + + + + | 03/26/ | Appointment | Radiology | Sheri Hernandez | | | 2017 | | | MD Robert Howell [address] | | | | | | [address] [place] | | | | | | [address] | | | | | | | | +--------+ + + + + | 03/26/ | Office | Cardiology | Sheri Hernandez | | | 2017 | Visit | | MD Dante [address] | | | | | | [address] [place] | | | | | | [address] | | | | | | | | +--------+ + + + + | 06/11/ | Office | Sleep Medicine | Janay Kapoor MD | | | 2017 | Visit | | [address] | | | | | | [place] | | | | | | [address] | | | | | | | [...]
--- OUTSIDE RECORDS SUMMARY | ~2018-02-17 | XMS | Encounter Summary ---
Demographics + + + | Address | [address] | | | [place] [address] | + + + | Home Phone | | + + + | Preferred Language | Unknown | + + + | Marital Status | Single | + + + | Adventism Affiliation | 1001 | + + + | Race | Unknown | + + + | Ethnic Group | Unknown | + + + Author + + + | Author | [facility] | | | and Kevonana | + + + | Organization | [facility] | | [...] | | | | | [place] [address] | | + + + + + Care Team Providers + +------+ + | Care Stick Inserter Name | Role | Phone | + +------+ + | Chris Swanson DO | PCP | Unavailable | + +------+ + Reason for Visit +--------+ + | Reason | Comments | +--------+ + | Other | EKG | +--------+ + Encounter Details +--------+ + + + + | Date | Type | Department | Care Team | Description | +--------+ + + + + | 01/15/ | Telephone | [facility] [place] | Rochelle Coreas | Other (EK) | | 2018 | | CARDIOLOGY [facility] | [place] | | | | | [address] | | | | | | [place] [address] [place] | | | | | | [address] | | | | | | [phone] | | | +--------+ + + + [...] | | | | | [place] [address] | | | | | | [phone] | | | | | | | | +--------+ + + + + | 03/26/ | Appointment | Radiology | Sheri Hernandez | | | 2017 | | | MD Dante [address] | | | | | | [address] [place] | | | | | | [address] | | | | | | | | +--------+ + + + + | 03/26/ | Office | Cardiology | Sheri Hernandez | | | 2017 | Visit | | MD [place] [address] | | | | | | [address] [place] | | | | | | [address] | | | | | | | | +--------+ + + + + | 06/11/ | Office | Sleep Medicine | Janay Kapoor MD | | | 2017 | Visit | | [address] | | | | | | [place] | | | | | | [address] | | | | | | | | +--------+ + + + + as of this encounter Visit Diagnoses Not on filein this encounter"
--- OUTSIDE RECORDS SUMMARY | ~2018-02-17 | XMS | Encounter Summary ---
Demographics + + + | Address | [address] | | | [place] [address] | + + + | Home Phone | | + + + | Preferred Language | Unknown | + + + | Marital Status | Single | + + + | Lutheran Affiliation | 1001 | + + + | Race | Unknown | + + + | Ethnic Group | Unknown | + + + Author + + + | Author | [facility] | | | and Kevonana | + + + | Organization | [facility] | | | and [...] | | | | | [place] [address] | | + + + + + Care Team Providers + +------+ + | Care Secondary School Teacher Name | Role | Phone | + [...] [place] | | | | | | [address] | | | | | | [phone] | | | +--------+ + + + [...] | | | | | [place] [address] | | | | | | [phone] | | | | | | | | +--------+ + + + + | 03/26/ | Appointment | Radiology | Sheri Hernandez | | | 2017 | | | MD [place] [address] | | | | | | [address] [place] | | | | | | [address] | | | | | | | | +--------+ + + + + | 03/26/ | Office | Cardiology | Sheri Hernandez | | | 2017 | Visit | | MD Dante [address] | | | | | | [address] [place] | | | | | | [address] | | | | | | | | +--------+ + + + + | 06/11/ | Office | Sleep Medicine | Janay Kapoor MD | | | 2017 | Visit | | [address] | | | | | | [place] | | | | | | [address] | | | | | | | | +--------+ + + + + as of this encounter Visit Diagnoses Not on filein this encounter"
--- OUTSIDE RECORDS SUMMARY | ~2018-02-17 | XMS | Clinical Summary ---
Demographics + + + | Address | [address] | | | [place] [address] | + + + | Home Phone | | + + + | Preferred Language | Unknown | + + + | Marital Status | | + + + | Episcopal Affiliation | Unknown | + + + | Race | Unknown | + + + | Ethnic Group | Unknown | + + + Author + + + | Author | [facility] | + + + | Organization | [facility] | + + + | Address | Unknown | + + + | Phone | Unavailable | + + + Care Team Providers + +------+ + | Care Head Banquet Waiter/Waitress Name | Role | Phone | + [...] | [phone] | | | [address] [address] | | | A BLUE | [phone] | | | [place] | | | CARD | | | | [address] | +---------+--------+ +------+-------+ + + +--------+ +--------+ [...] | | al/Derek | | [phone] | [phone] [place] [address] | | | mishel | | | [address]: | | | | | | | | | | | | | [phone] | | | | | | [phone] | | + +--------+ +--------+ + +"
--- OUTSIDE RECORDS SUMMARY | ~2018-02-17 | XMS | Encounter Summary ---
Demographics + + + | Address | [address] | | | [place] [address] | + + + | Home Phone | | + + + | Preferred Language | Unknown | + + + | Marital Status | Single | + + + | Quaker Affiliation | 1001 | + + + | Race | Unknown | + + + | Ethnic Group | Unknown | + + + Author + + + | Author | [facility] | | | and Kevonana | + + + | Organization | [facility] | | | [...] [place]ITH | | | | | [place] [address] | | + + + + + Care Team Providers + +------+ + | Care Enrollment Management Manager Name | Role | Phone | [...] | | | type (HCC) | | [address] Phone: | | | | | Atrial | | [phone] | | | | | fibrillation | | Fax: | | | | | , | | [phone] | | | | | unspecified | | | | | | | type (HCC) | | | | | | | [I48.91] | | | | | | | Procedures | | | | | | | [place] | | | | | | | CARDIOVERSIO | | | | | | | N ELECTIVE | | | | | | | ARRHYTHMIA | | | | | | | EXTERNAL [place] | | | | | | | [...] | Event | MED CTR CARDIAC | AUDIOLOGY TECHNICIAN [address] | | | | | ADMIT AND RECOVERY | [place] [address] | | | | | [address] | [phone] | | | | | [place], [place] | | | | | | [address] | | | | | | [phone] | | | +--------+ + + + [...] | DIOVERSION | | | | | ([id number]/12581) (N/A | | | | | Mouth) [...] by | | renel | (dorsal); Hand; [id number] | Rika Hutson | Rika Hutson | | IV | catheter system; 20 gauge, 1 in | Avelino RN | ONIEL Yuo | | | length; Chemistry; 0; intradermal [...] | | | | | [place] [address] | | | | | | [phone] | | | | | | | | +--------+ + + + + | 03/26/ | Appointment | Radiology | Sheri Hernandez | | | 2017 | | | MD [place] [address] | | | | | | [address] [place] | | | | | | [address] | | | | | | | | +--------+ + + + + | 03/26/ | Office | Cardiology | Sheri Hernandez | | | 2017 | Visit | | MD [place] [address] | | | | | | [address] [place] | | | | | | [address] | | | | | | | | +--------+ + + + + | 06/11/ | Office | Sleep Medicine | Janay Kapoor MD | | | 2017 | Visit | | [address] | | | | | | [place] | | | | | | [phone] | | | | | | | [...] 13:17 | | | | | Intravenous, CORPORATE TRAVEL COUNSELOR, Starting | | PDT | | | | | 01/08/18 at 1103, For 1 dose, | | | | | | | Pre-op | | | | | | + +---------+ +---+---+---+ +---+---+ | | | +---+---+ in this encounter"
--- OUTSIDE RECORDS SUMMARY | ~2018-02-17 | XMS | Encounter Summary ---
Demographics + + + | Address | [address] | | | [place] [address] | + + + | Home Phone | | + + + | Preferred Language | Unknown | + + + | Marital Status | Single | + + + | Confucianism Affiliation | 1001 | + + + | Race | Unknown | + + + | Ethnic Group | Unknown | + + + Author + + + | Author | [facility] | | | and Kevonana | + + + | Organization | [facility] | | [...] | | | | | [place] [address] | | + + + + + Care Team Providers + +------+ + | Care Glue Bone Drier Name | Role | Phone | + [...] [place] | | | | | | [address] | | | | | | [phone] | | | +--------+ + + + [...] | | | | | [place] [address] | | | | | | [phone] | | | | | | | | +--------+ + + + + | 03/26/ | Appointment | Radiology | Sheri Hernandez | | | 2017 | | | MD [place] [address] | | | | | | [address] [place] | | | | | | [address] | | | | | | | | +--------+ + + + + | 03/26/ | Office | Cardiology | Sheri Hernandez | | | 2017 | Visit | | MD [place] [address] | | | | | | [address] [place] | | | | | | [address] | | | | | | | [...]
--- OUTSIDE RECORDS SUMMARY | ~2018-02-17 | XMS | Encounter Summary ---
Demographics + + + | Address | [address] | | | [place] [address] | + + + | Home Phone | | + + + | Preferred Language | Unknown | + + + | Marital Status | Single | + + + | Yazdanism Affiliation | 1001 | + + + | Race | Unknown | + + + | Ethnic Group | Unknown | + + + Author + + + | Author | [facility] | | | and Kevonana | + + + | Organization | [facility] | | | and [...] | | | | | [place] [address] | | + + + + + Care Team Providers + +------+ + | Care Tube Sorter Name | Role | Phone | + [...] Other | | 2018 | | CARDIOLOGY [facility] | MD Dante [address] | | | | | HI[address] | [address] [place] | | | | | [place] [address] [place] | [address] | | | | | [address] | | | | | | [phone] | | | +--------+ + + + [...] | | | | | [place] [address] | | | | | | [phone] | | | | | | | | +--------+ + + + + | 03/26/ | Appointment | Radiology | Sheri Hernandez | | | 2017 | | | MD [place] [address] | | | | | | [address] [place] | | | | | | [address] | | | | | | | | +--------+ + + + + | 03/26/ | Office | Cardiology | Sheri Hernandez | | | 2017 | Visit | | MD [place] [address] | | | | | | [address] [place] | | | | | | [address] | | | | | | | | +--------+ + + + + | 06/11/ | Office | Sleep Medicine | Janay Kapoor MD | | | 2017 | Visit | | [address] | | | | | | [place] | | | | | | [address] | | | | | | | | +--------+ + + + + as of this encounter Visit Diagnoses Not on filein this encounter"
--- OUTSIDE RECORDS SUMMARY | ~2018-02-17 | XMS | Encounter Summary ---
Demographics + + + | Address | [address] | | | [place] [address] | + + + | Home Phone | | + + + | Preferred Language | Unknown | + + + | Marital Status | Single | + + + | Yazidism Affiliation | 1001 | + + + | Race | Unknown | + + + | Ethnic Group | Unknown | + + + Author + + + | Author | [facility] | | | and Kevonana | + + + | Organization | [facility] | | [...] SMITH | | | | | [place] [address] | | + + + + + Care Team Providers + +------+ + | Care Furnace Worker Name | Role | Phone | + [...] [place] | | | | | | ([facility]) | [address] | | | | | | Procedures | Phone: | | | | | | ECHO | [phone] | | | | | | Complete | Fax: | | | | | | | [phone] | | + +--------+ + + + [...] | | , | [address] | [address] | | | | | unspecified | [place] | Phone: | | | | | type (HCC) | [address] | [phone] | | | | | Procedures | Phone: | Fax: | | | | | ECHO | [phone] | [phone] | | | | | Transesophag | Fax: | | | | | | eal ([facility]) | [phone] | | +--------+--------+ + + + + Diagnostic/Screening (Routine) +--------+--------+ + + + + | Status | Reason | Specialty | Diagnoses / | Referred By | Referred To | | | | | Procedures | Contact | Contact | +--------+--------+ + + + + | Closed | | Radiology | Diagnoses | David, | [facility] Echo | | | | | Atrial | Sheri Howell MD | [address] | | | | | fibrillation | [address] | [place] | | | | | , | [address] | [address] | | | | | unspecified | [place] | Phone: | | | | | type (HCC) | [address] | [phone] | | | | | Procedures | Phone: | Fax: | | | | | ECHO | [phone] | [phone] | | | | | Transesophag | Fax: | | | | | | eal (GOLDEN) | [phone] | | +--------+--------+ + + + + [...] | | | type (HCC) | | [address] Phone: | | | | | Atrial | | [phone] | | | | | fibrillation | | Fax: | | | | | , | | [phone] | | | | | unspecified | | | | | | | type (HCC) | | | | | | | [I48.91] | | | | | | | Procedures | | | | | | | [place] | | | | | | | CARDIOVERSIO | | | | | | | N ELECTIVE | | | | | | | ARRHYTHMIA | | | | | | | EXTERNAL [place] | | | | | | | [...] + + | 01/08/ | Hospital | [facility] | Sheri Hernandez | Paroxysmal atrial | | 2018 | Encounter | MED CTR CARDIAC | MD [place] [address] | fibrillation (HCC) | | | | ADMIT AND RECOVERY | [address] [place] | (Primary Dx); Atrial | | | | [address] | [address] | fibrillation, | | | | [place] | | unspecified type | | | | [address] | | (HCC); | | | | [phone] | | Cardiomyopathy, | | | | [...] | | | | | [place] [address] | | | | | | [phone] | | | | | | | | +--------+ + + + + | 03/26/ | Appointment | Radiology | Sheri Hernandez | | | 2017 | | | MD Robert Howell [address] | | | | | | [address] [place] | | | | | | [address] | | | | | | | | +--------+ + + + + | 03/26/ | Office | Cardiology | Sheri Hernandez | | | 2017 | Visit | | MD Robert Howell [address] | | | | | | [address] [place] | | | | | | [address] | | | | | | | | +--------+ + + + + | 06/11/ | Office | Sleep Medicine | Janay Kapoor MD | | | 2017 | Visit | | [address] | | | | | | [place] | | | | | | [address] | | | | | | | [...] unspecified type | | | | | ([facility]) | | + +--------+ + + | ECG 12 lead | Routin | Paroxysmal atrial | Expected: | | | e | fibrillation ([facility]) | 01/15/2018, Expires: | | | | | 01/08/2019 | + +--------+ + + | ECHO Complete | Routin | Paroxysmal atrial | Expected: | | | e | fibrillation ([facility]) | 04/10/2018, Expires: | | [...] | | unspecified type | | | ([id number]) | | | ([facility]) | | + +--------+ + + + in this encounter Results ECG 12 lead (01/08/2018 1415) + + + | Specimen | Performing Laboratory | + + + | | [facility] [address] [place] [address] [place] [address] | + + + + + | Narrative | + + | HEART RATE:78 bpm RR Interval:769 ms Atrial Rate:78 ms P-R Interval:163 ms P | | Duration:0 ms P Horizontal Hudson:-12 deg P Front Hudson:0 deg Q Onset:516 ms QRSD | | Interval:92 ms QT Interval:404 ms QTcB:461 ms QTcF:441 ms QRS Horizontal Hudson:15 deg | | QRS Hudson:91 deg I-40 Horizontal Hudson:42 deg I-40 Front Hudson:70 deg T-40 Horizontal | | Hudson:250 deg T-40 Front Hudson:215 deg T Horizontal Hudson:235 deg T Wave Hudson:258 deg | | S-T Horizontal Hudson:227 deg S-T Front Hudson:254 deg Severity:- ABNORMAL ECG - | | INTERP:SINUS RHYTHM INTERP:RIGHT AXIS DEVIATION INTERP:ABNORMAL T, CONSIDER ISCHEMIA, | | DIFFUSE LEADS Electronically signed by: HELEN CHACON 01-11-2018 19:43:58 | + + ECHO Transesophageal ([facility]OLD[facility]) (01/08/2018 3424) + +-------+ + | Component | Value | Ref Range | + +-------+ + | LVEF-GOLDEN | 30 | | | TRANSESOPHAGEAL ECHO | | | + +-------+ + + + | Narrative | + + | Transesophageal Echocardiography Report ([facility]) Demographics Patient Name | | SHAHAB SWENSON Room Number [facility] СВЕТЛАНА SMART | | [place] Patient Number [id number] Date | | of Study 01/08/2018 Visit Number [id number] | | Interpreting David | | Sheri RASMUSSEN Number | | Physician FAC Date of | | 1955 Referring Physician Sheri Hernandez MD | | | | [facility] Age 62 | | year(s) Machine Milker Gender | | Female Nurse | | Stress Stopperer Assembler | | Procedure Type of Study GOLDEN [...] | Electronically signed by Sheri Hernandez MD [facility](Interpreting physician) on | | 01/08/2018 [...] СВЕТЛАНА SMART | | OTONIEL Patient Number [id number] Date of Study 01/08/2018 | | Visit Number [id number] Interpreting | | Sheri Hernandez MD Number Physician FAC Date of | | 1955 Referring Physician Sheri Hernandez MD | | FAC Age 62 year(s) Machine Milker Gender | | Female 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 | [...] | Electronically signed by Sheri Hernandez MD [facility](Interpreting physician) | | on 01/08/2018 [...] | Electronically signed by Sheri Hernandez MD [facility](Interpreting physician) | | on 01/08/2018 [...] Laboratory | + + + | | [facility] [address] | | | [place] [address] | + + + ECG 12 lead (01/08/2018 1123) + + + | Specimen | Performing Laboratory | + + + | | NNEKA ESCOBAR [address] [place] [address] [place] [address] | + + + + + | Narrative | + + | HEART RATE:90 bpm RR Interval:667 ms Atrial Rate:0 ms P-R Interval: ms P | | Duration:0 ms P Horizontal Hudson: deg P Front Hudson: deg Q Onset:512 ms QRSD | | Interval:88 ms QT Interval:392 ms QTcB:480 ms QTcF:449 ms QRS Horizontal Hudson:-1 deg | | QRS Hudson:84 deg I-40 Horizontal Hudson:34 deg I-40 Front Hudson:78 deg T-40 Horizontal | | Hudson:249 deg T-40 Front Hudson:242 deg T Horizontal Hudson:228 deg T Wave Hudson:262 deg | | S-T Horizontal Hudson:219 deg S-T Front Hudson:257 deg Severity:- ABNORMAL ECG - | | [...] + -----+ | GLUCOSE | 123 (H)Comment: Niuean Diabetes | 65 - 99 mg/dL | [...] | + + + | Blood | [facility] [address] | | | [place] [address] | + + + in this encounter [...]
--- OUTSIDE RECORDS SUMMARY | ~2018-02-17 | XMS | Encounter Summary ---
Demographics + + + | Address | [address] | | | [place] [address] | + + + | Home Phone | | + + + | Preferred Language | Unknown | + + + | Marital Status | Single | + + + | Yarsani Affiliation | 1001 | + + + | Race | Unknown | + + + | Ethnic Group | Unknown | + + + Author + + + | Author | [facility] | | | and Kevonana | + + + | Organization | [facility] | | | and [...] [place] | | | | | [place] [address] | | + + + + + Care Team Providers + +------+ + | Care Tire Room Supervisor Name | Role | Phone | + [...] | | , | [address] | [address] | | | | | unspecified | [place] | Phone: | | | | | type (HCC) | [address] | [phone] | | | | | Procedures | Phone: | Fax: | | | | | ECHO | [phone] | [phone] | | | | | Transesophag | Fax: | | | | | | eal ([facility]) | [phone] | | +--------+--------+ + + + + [...] [address] | [address] [place] | ([facility]) | | | | [place] [address] [place] | [address] | | | | | [address] | | | | | | [phone] | | | +--------+ + + + [...] | | | | | [place] [address] | | | | | | [phone] | | | | | | | | +--------+ + + + + | 03/26/ | Appointment | Radiology | Sheri Hernandez | | | 2017 | | | MD [place] [address] | | | | | | [address] [place] | | | | | | [address] | | | | | | | | +--------+ + + + + | 03/26/ | Office | Cardiology | Sheri Hernandez | | | 2017 | Visit | | MD [place] [address] | | | | | | [address] [place] | | | | | | [address] | | | | | | | | +--------+ + + + + | 06/11/ | Office | Sleep Medicine | Janay Kapoor MD | | | 2017 | Visit | | [address] | | | | | | [place] | | | | | | [address] | | | | | | | [...] СВЕТЛАНА SMART | | OTONIEL Patient Number [id number] Date | | of Study 01/08/2018 Visit Number [id number] | | Interpreting David | | Sheri RASMUSSEN Number | | Physician [facility] Date of | | 1955 Referring Physician Sheri Hernandez MD | | | | [facility] Age 62 | | year(s) Cost And Risk Analysis Manager Gender | | Female Nurse | | Stress Ndt Inspector | | Procedure Type of Study GOLDEN [...] | Electronically signed by Sheri Hernandez MD [facility](Interpreting physician) on | | 01/08/2018 03:14 [...] СВЕТЛАНА SMART | | OTONIEL Patient Number [id number] Date of Study 01/08/2018 | | Visit Number [id number] Interpreting | | Sheri Hernandez MD Number Physician [facility] Date of | | 1955 Referring Physician Sheri Hernandez MD | | [facility] Age 62 year(s) Cost And Risk Analysis Manager Gender | | Female 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 | [...] | Electronically signed by Sheri Hernandez MD [facility](Interpreting physician) | | on 01/08/2018 03:14 [...] | | | | Electronically signed by Shrei Hernandez MD [facility](Interpreting physician) | | on 01/08/2018 03:14 [...]
--- OUTSIDE RECORDS SUMMARY | ~2018-02-17 | XMS | Encounter Summary ---
Demographics + + + | Address | [address] | | | [place] [address] | + + + | Home Phone | | + + + | Preferred Language | Unknown | + + + | Marital Status | Single | + + + | Samaritan Affiliation | 1001 | + + + | Race | Unknown | + + + | Ethnic Group | Unknown | + + + Author + + + | Author | [facility] | | | and Kevonana | + + + | Organization | [facility] | | | [...] [place] | | | | | [place] [address] | | + + + + + Care Team Providers + +------+ + | Care Hospice Entrance Attendant Name | Role | Phone | + [...] | | | type (HCC) | | [address] Phone: | | | | | Atrial | | [phone] | | | | | fibrillation | | Fax: | | | | | , | | [phone] | | | | | unspecified | | | | | | | type (HCC) | | | | | | | [I48.91] | | | | | | | Procedures | | | | | | | CO | | | | | | | CARDIOVERSIO | | | | | | | N ELECTIVE | | | | | | | ARRHYTHMIA | | | | | | | EXTERNAL CO | | | | | | | ECHO | | | | | | | TRANSESOPHAG | | | | | | | R-T 2D | | | | | | | W/PRB IMG | | | | | | | ACQUDANA I&R | | | +--------+--------+ + + + + Encounter Details +--------+---------+ + + + | Date | Type | Department | Care Team | Description | +--------+---------+ + + + | 01/08/ | Surgery | [facility] | Sheri Hernandez | ECHO - | | 2017 | | MED CTR CARDIAC | MD Dante [address] | TRANSESEOPHAGEAL/CAR | | | | ADMIT AND RECOVERY | [address] [place] | DIOVERSION | | | | [address] | [address] | ([id number]) | | | | [place] | | | | | | [address] | | | | | | [phone] | | | +--------+---------+ + + + Social History [...] Weight | 91.2 kg (201 lb) | 01/08/2018 1118 PDT | + + + + | Height | 171.5 cm (5' 7.5") | 01/08/2018 1118 PDT | + + + + | [...] and do not drive yourself to the h ospital. When to Call Your Doctor Call [...] and do not drive yourself to the h ospital. in this encounter Medications at Time [...] CPAP | 1 each | 99 | 06/05/20 | | | Therapy Supplies | 7-14 [...] | | | | | [place] [address] | | | | | | [phone] | | | | | | | | +--------+ + + + + | 03/26/ | Appointment | Radiology | Sheri Hernandez | | | 2017 | | | MD [place] [address] | | | | | | [address] [place] | | | | | | [address] | | | | | | | | +--------+ + + + + | 03/26/ | Office | Cardiology | Sheri Hernandez | | | 2017 | Visit | | MD [place] [address] | | | | | | [address] [place] | | | | | | [address] | | | | | | | | +--------+ + + + + | 06/11/ | Office | Sleep Medicine | Janay Kapoor MD | | | 2017 | Visit | | [address] | | | | | | [place] | | | | | | [phone] | | | | | | | [...] unspecified type | | | | | ([facility]) | | + +--------+ + + | ECG 12 lead | Routin | Paroxysmal atrial | Expected: | | | e | fibrillation ([facility]) | 01/15/2018, Expires: | | | | | 01/08/2019 | + +--------+ + + | ECHO Complete | Routin | Paroxysmal atrial | Expected: | | | e | fibrillation ([facility]) | 04/10/2018, Expires: | | [...] | | unspecified type | | | ([id number]) | | | (HCC) | | + +--------+ + + + in this encounter Results ECG 12 lead (01/08/2018 1415) + + + | Specimen | Performing Laboratory | + + + | | [facility] [address] [place] [address] | + + + + + | Narrative | + + | HEART RATE:78 bpm RR Interval:769 ms Atrial Rate:78 ms P-R Interval:163 ms P | | Duration:0 ms P Horizontal Hubbard:-12 deg P Front Hubbard:0 deg Q Onset:516 ms QRSD | | Interval:92 ms QT Interval:404 ms QTcB:461 ms QTcF:441 ms QRS Horizontal Hubbard:15 deg | | QRS Hubbard:91 deg I-40 Horizontal Hubbard:42 deg I-40 Front Hubbard:70 deg T-40 Horizontal | | Hubbard:250 deg T-40 Front Hubbard:215 deg T Horizontal Hubbard:235 deg T Wave Hubbard:258 deg | | S-T Horizontal Hubbard:227 deg S-T Front Hubbard:254 deg Severity:- ABNORMAL ECG - | | [...] СВЕТЛАНА SMART | | OTONIEL Patient Number [id number] Date | | of Study 01/08/2018 Visit Number [id number] | | Interpreting David | | Sheri RASMUSSEN Number | | Physician FACC Date of | | 1955 Referring Physician Sheri Hernandez MD | | | | FAC Age 62 | | year(s) 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 | | Procedure Type of Study [...] | Electronically signed by Sheri Hernandez MD [facility](Interpreting physician) on | | 01/08/2018 03:14 PM [...] СВЕТЛАНА SMART | | OTONIEL Patient Number [id number] Date of Study 01/08/2018 | | Visit Number [id number] Interpreting | | Sheri Hernandez MD Number Physician FAC Date of | | 1955 Referring Physician Sheri Hernandez MD | | [facility] Age 62 year(s) 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 | | Female 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 | [...] | Electronically signed by Sheri Hernandez MD [facility](Interpreting physician) | | on 01/08/2018 03:14 | [...] | Electronically signed by Sheri Hernandez MD [facility](Interpreting physician) | | on 01/08/2018 03:14 PM [...] Left Ventricle | + + POC Glucose (01/08/20181124) + +---------+ + | Component | Value | Ref Range | + +---------+ + | Glucose, POC | 116 (H) | 65 - 99 mg/dL | + +---------+ + + + + | Specimen | Performing Laboratory | + + + | | [facility] [address] | | | [place] [address] | + + + ECG 12 lead (01/08/20181122) + + + | Specimen | Performing Laboratory | + + + | | [facility] ESCOBAR [address] [place] [address] [place] [address] | + + + + + | Narrative | + + | HEART RATE:90 bpm RR Interval:667 ms Atrial Rate:0 ms P-R Interval: ms P | | Duration:0 ms P Horizontal Hubbard: deg P Front Hubbard: deg Q Onset:512 ms QRSD | | Interval:88 ms QT Interval:392 ms QTcB:480 ms QTcF:449 ms QRS Horizontal Hubbard:-1 deg | | QRS Hubbard:84 deg I-40 Horizontal Hubbard:34 deg I-40 Front Hubbard:78 deg T-40 Horizontal | | Hubbard:249 deg T-40 Front Hubbard:242 deg T Horizontal Hubbard:228 deg T Wave Hubbard:262 deg | | S-T Horizontal Hubbard:219 deg S-T Front Hubbard:257 deg Severity:- ABNORMAL ECG - | | INTERP:ATRIAL FIBRILLATION INTERP:BORDERLINE RIGHT AXIS DEVIATION INTERP:ABNORMAL T, | | CONSIDER ISCHEMIA, DIFFUSE LEADS Electronically signed by: HELEN CHACON | | E 01-11-2018 19:44:09 | + + Basic Metabolic [...] + -----+ | GLUCOSE | 123 (H)Comment: [place] Diabetes | 65 - 99 mg/dL | [...] | + + + | Blood | [facility] [address] | | | [place] [address] | + + + in this encounter Visit Diagnoses + + | Diagnosis | + + | Atrial fibrillation, unspecified type (HCC) | + + Admitting [...]
--- OUTSIDE RECORDS SUMMARY | ~2018-02-17 | XMS | Encounter Summary ---
Demographics + + + | Address | [address] | | | [place] [address] | + + + | Home Phone | | + + + | Preferred Language | Unknown | + + + | Marital Status | Single | + + + | Roman Catholic Affiliation | 1001 | + + + | Race | Unknown | + + + | Ethnic Group | Unknown | + + + Author + + + | Author | [facility] | | | and Kevonana | + + + | Organization | [facility] | | | [...] | | | | | [place] [address] | | + + + + + Care Team Providers + +------+ + | Care Worm Picker Name | Role | Phone | + [...] + + | 01/03/ | Telephone | [place] | Sheri Hernandez | Other | | 2018 | | CARDIOLOGY [facility] | MD [place] [address] | | | | | [place] | [address] [place] | | | | | [place] [address] [place] | [address] | | | | | [address] | | | | | | [phone] | | | +--------+ + + + [...] | | | | | [place] [address] | | | | | | [phone] | | | | | | | | +--------+ + + + + | 03/26/ | Appointment | Radiology | Sheri Hernandez | | | 2017 | | | MD [place] [address] | | | | | | [address] [place] | | | | | | [address] | | | | | | | | +--------+ + + + + | 03/26/ | Office | Cardiology | Sheri Hernandez | | | 2017 | Visit | | MD [place] [address] | | | | | | [address] [place] | | | | | | [address] | | | | | | | | +--------+ + + + + | 06/11/ | Office | Sleep Medicine | Janay Kapoor MD | | | 2017 | Visit | | [address] | | | | | | [place] | | | | | | [id number] | | | | | | | | +--------+ + + + + as of this encounter Visit Diagnoses Not on filein this encounter"
--- OUTSIDE RECORDS SUMMARY | ~2018-02-17 | XMS | Encounter Summary ---
Demographics + + + | Address | [address] | | | [place] [address] | + + + | Home Phone | | + + + | Preferred Language | Unknown | + + + | Marital Status | Single | + + + | Oriental Orthodox Affiliation | 1001 | + + + [...] | | | | | [place] [address] | | + + + + + Care Team Providers + +------+ + | Care Loading Machine Tool Setter Name | Role | Phone | + [...] Other | | 2018 | | CARDIOLOGY [facility] | MD Dante [address] | | | | | [place] [address] | [address] [place] | | | | | [place] [address] [place] | [address] | | | | | [address] | | | | | | [phone] | | | +--------+ + + + [...] | | | | | [place] [address] | | | | | | [phone] | | | | | | | | +--------+ + + + + | 03/26/ | Appointment | Radiology | Sheri Hernandez | | | 2017 | | | MD Dante [address] | | | | | | [address] [place] | | | | | | [address] | | | | | | | | +--------+ + + + + | 03/26/ | Office | Cardiology | Sheri Hernandez | | | 2017 | Visit | | MD Dante [address] | | | | | | [address] [place] | | | | | | [address] | | | | | | | | +--------+ + + + + | 06/11/ | Office | Sleep Medicine | Janay Kapoor MD | | | 2017 | Visit | | [address] | | | | | | [place] | | | | | | [phone] | | | | | | | | +--------+ + + + + as of this encounter Visit Diagnoses Not on filein this encounter"
--- OUTSIDE RECORDS SUMMARY | ~2018-02-17 | XMS | Encounter Summary ---
Demographics + + + | Address | [address] | | | [place] [address] | + + + | Home Phone | | + + + | Preferred Language | Unknown | + + + | Marital Status | Single | + + + | Baptism Affiliation | 1001 | + + + | Race | Unknown | + + + | Ethnic Group | Unknown | + + + Author + + + | Author | [facility] | | | and Kevonana | + + + | Organization | [facility] | | | [...] [place] | | | | | [place] [address] | | + + + + + Care Team Providers + +------+ + | Care Circus Rider Name | Role | Phone | + [...] | | | type (HCC) | | [phone] Phone: | | | | | Atrial | | [phone] | | | | | fibrillation | | Fax: | | | | | , | | [phone] | | | | | unspecified | | | | | | | type (HCC) | | | | | | | [I48.91] | | | | | | | Procedures | | | | | | | [place] | | | | | | | CARDIOVERSIO | | | | | | | N ELECTIVE | | | | | | | ARRHYTHMIA | | | | | | | EXTERNAL [place] | | | | | | | [...] | | [address] | [address] | ([id number]) | | | | [place] | | | | | | [address] | | | | | | [phone] | | | +--------+---------+ + + + [...] | | | | | [place] [address] | | | | | | [phone] | | | | | | | | +--------+ + + + + | 03/26/ | Appointment | Radiology | Sheri Hernandez | | | 2017 | | | MD [place] [address] | | | | | | [address] [place] | | | | | | [address] | | | | | | | | +--------+ + + + + | 03/26/ | Office | Cardiology | Sheri Hernandez | | | 2017 | Visit | | MD Dante [address] | | | | | | [address] [place] | | | | | | [address] | | | | | | | | +--------+ + + + + | 06/11/ | Office | Sleep Medicine | Janay Kapoor MD | | | 2017 | Visit | | [address] | | | | | | [place] | | | | | | [phone] | | | | | | | [...] unspecified type | | | | | ([facility]) | | + +--------+ + + | ECG 12 lead | Routin | Paroxysmal atrial | Expected: | | | e | fibrillation ([facility]) | 01/15/2018, Expires: | | | | | 01/08/2019 | + +--------+ + + | ECHO Complete | Routin | Paroxysmal atrial | Expected: | | | e | fibrillation ([facility]) | 04/10/2018, Expires: | | | | [...] | | unspecified type | | | ([id number]) | | | (HCC) | | + +--------+ + + + in this encounter Results ECG 12 lead (01/08/2018 1415) + + + | Specimen | Performing Laboratory | + + + | | [facility] [address] [place] [address] | + + + + + | Narrative | + + | HEART RATE:78 bpm RR Interval:769 ms Atrial Rate:78 ms P-R Interval:163 ms P | | Duration:0 ms P Horizontal [place]:-12 deg P Front [place]:0 deg Q Onset:516 ms QRSD | | Interval:92 ms QT Interval:404 ms QTcB:461 ms QTcF:441 ms QRS Horizontal [place]:15 deg | | QRS [place]:91 deg I-40 Horizontal [place]:42 deg I-40 Front [place]:70 deg T-40 Horizontal | | [place]:250 deg T-40 Front [place]:215 deg T Horizontal [place]:235 deg T Wave [place]:258 deg | | S-T Horizontal [place]:227 deg S-T Front [place]:254 deg Severity:- ABNORMAL ECG - | | [...] СВЕТЛАНА SMART | | OTONIEL Patient Number [id number] Date | | of Study 01/08/2018 Visit Number [id number] | | Interpreting David | | Sheri RASMUSSEN Number | | Physician FACC Date of | | 1955 Referring Physician Sheri Hernandez MD | | | | FAC Age 62 | | year(s) 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 | | Procedure Type of Study GOLDEN [...] | Electronically signed by Sheri Hernandez MD [facility](Interpreting physician) on | | 01/08/2018 03:14 [...] СВЕТЛАНА SMART | | OTONIEL Patient Number [id number] Date of Study 01/08/2018 | | Visit Number [id number] Interpreting | | Sheri Hernandez MD Number Physician FAC Date of | | 1955 Referring Physician Sheri Hernandez MD | | [facility] Age 62 year(s) 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 | | Female 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 | [...] | Electronically signed by Sheri Hernandez MD [facility](Interpreting physician) | | on 01/08/2018 03:14 [...] | Electronically signed by Sheri Hernandez MD [facility](Interpreting physician) | | on 01/08/2018 03:14 [...] [facility] [address] | | | [place] [address] | + + + ECG 12 lead (01/08/20181122) + + + | Specimen | Performing Laboratory | + + + | | [facility] ESCOBAR [address] [place] [address] [place] [address] | + + + + + | Narrative | + + | HEART RATE:90 bpm RR Interval:667 ms Atrial Rate:0 ms P-R Interval: ms P | | Duration:0 ms P Horizontal [place]: deg P Front [place]: deg Q Onset:512 ms QRSD | | Interval:88 ms QT Interval:392 ms QTcB:480 ms QTcF:449 ms QRS Horizontal [place]:-1 deg | | QRS [place]:84 deg I-40 Horizontal [place]:34 deg I-40 Front [place]:78 deg T-40 Horizontal | | [place]:249 deg T-40 Front [place]:242 deg T Horizontal [place]:228 deg T Wave [place]:262 deg | | S-T Horizontal [place]:219 deg S-T Front [place]:257 deg Severity:- ABNORMAL ECG - | | INTERP:ATRIAL FIBRILLATION INTERP:BORDERLINE RIGHT AXIS DEVIATION INTERP:ABNORMAL T, | | CONSIDER ISCHEMIA, DIFFUSE LEADS Electronically signed by: HELEN CAHCON | | E 01-11-2018 19:44:09 | + [...] + -----+ | GLUCOSE | 123 (H)Comment: [place] Diabetes | 65 - 99 mg/dL | [...] | + + + | Blood | [facility] [address] | | | [place] [address] | + + + in this encounter [...]
--- OUTSIDE RECORDS SUMMARY | 2018-02-17 03:45 | XMS | Clinical Summary ---
Demographics + + + | Address | [address] | | | [place] [address] | + + + | Home Phone | | + + + | Preferred Language | Unknown | + + + | Marital Status | | + + + | Yazidi Affiliation | Unknown | + + + | Race | Unknown | + + + | Ethnic Group | Unknown | + + + Author + + + | Author | [facility] | + + + | Organization | [facility] | + + + | Address | Unknown | + + + | Phone | Unavailable | + + + Care Team Providers + +------+ + | Care Quilter Fixer Name | Role | Phone | + +------+ + | Rafael Swanson DO | PP | | + +------+ + Allergies Not on File Current Medications Not on file Active Problems Not on file Social History + +-------+ +--------+------+ | Tobacco Use | Types | Packs/Day | Years | Date | | | | | Used | | + +-------+ +--------+------+ | Never Assessed | | | | | + +-------+ +--------+------+ + + + | Sex Assigned at | Date Recorded | | | | + + + | Not on file | | + + + Plan of Treatment + + + + + | Health Maintenance | Due Date | Last Done | Comments | + + + + + | Vaccine: | | | | | Dtap/Tdap/Td (1 - | 2 | | | | Tdap) | | | | + + + + + | Cervical Cancer | | | | | Screening (Pap) | 4 | | | + + + + + | Breast Cancer | | | | | Screening | 3 | | | | (Mammogram) | | | | + + + + + | Colon Cancer | | | | | Screening | 3 | | | | (Colonoscopy) | | | | + + + + + | Vaccine: Influenza | | | | | (Season Ended) | 8 | | | + + + + + Results Not on filefrom Last 3 Months Insurance +---------+--------+ +------+-------+ + | Payer | Benefi | Subscriber | Type | Phone | Address | | | t Plan | ID | | | | | | / | | | | | | | Group | | | | | +---------+--------+ +------+-------+ + | PREMERA | PREMER | xxxxxxxxxxx | | | [address] [address] | | | A BLUE | x | | | [place] | | | CARD | | | | [id number] | +---------+--------+ +------+-------+ + + +--------+ +--------+ + + | Guarantor Name | Accoun | Relation to | Date | Phone | Billing Address | | | t Type | Patient | of | | | | | | | | | | + +--------+ +--------+ + + | LEELA OVERTON | Person | Self [birth year] | Work: | [address] [place] | | | al/Derek | | [phone] | [phone] [place] [address] | | | [address] | | | [phone]: | | | | | | | | | | | | | | [phone] | | | | | | | [phone] | | + +--------+ +--------+ + +"
--- OUTSIDE RECORDS SUMMARY | 2018-02-17 03:46 | XMS | Clinical Summary ---
Demographics + + + | Address | [address] | | | [place] [address] | + + + | Home Phone | | + + + | Preferred Language | Unknown | + + + | Marital Status | Single | + + + | Samaritan Affiliation | 1001 | + + + | Race | Unknown | + + + | Ethnic Group | Unknown | + + + Author + + + | Author | [facility] | | | and [place] | + + + | Organization | [facility] | | | and [place] | + + + | Address | Unknown | + + + | Phone | Unavailable | + + + Support + + + + + | Name | Relationship | Address | Phone | + + + + + | Lidya Overton | ECON | NA | | | | | NA, | | + + + + + | Ata Stephens | ECON | [address] | | | | | [place] [address] | | + + + + + Care Team Providers + +------+ + | Care Box Car Checker Name | Role | Phone | + +------+ + | Chris Swanson DO | PP | Unavailable | + +------+ + Allergies + + + + + + | Active Allergy | Reactions | Severity | Noted | Comments | | | | | Date | | + + + + + + | Statins | | Medium | 05/26/20 | Severe muscle pain | | | | | 13 | | + + + + + + Current Medications + + + +---------+------+------+-------+ | Prescription | Sig. | Disp. | Refills | Star | End | Statu | | | | | | t | Date | s | | | | | | Date | | | + + + +---------+------+------+-------+ | metroNIDAZOLE | Use as directed | | | 06/23 | | Activ | | (METROGEL) 1 % gel | | | | 02/09 | | e | | | | | | 12 | | | + + + +---------+------+------+-------+ | Coenzyme Q10 (CO | Take 2 capsules by | | | | | Activ | | Q-10) 100 MG CAPS | mouth Daily. | | | | | e | + + + +---------+------+------+-------+ | Respiratory | ResMed S10 auto CPAP | 1 each | 99 | 08/ | | Activ | | Therapy Supplies | 7-14 cm H2O. Heater | | | 02/09 | | e | | MISC | and Humidifier. | | | 15 | | | | | Heated Tubing. All | | | | | | | | necessary supplies. | | | | | | | | She will have a mask | | | | | | | | fit appt here to | | | | | | | | see if we can find a | | | | | | | | better fitting mask | | | | | | | | for her. AHI 13.3. | | | | | | | | Diagnosis Code(s) | | | | | | | | 327.23. Length of | | | | | | | | Need 99 months. | | | | | | | | Please send order to | | | | | | | | [facility]. | | | | | | + + + +---------+------+------+-------+ | dapagliflozin | Take 10 mg by mouth | | | | | Activ | | (FARXIGA) 10 mg | every morning. | | | | | e | | tablet | | | | | | | + + + +---------+------+------+-------+ | Alpha-Lipoic Acid | Take 600 mg by mouth | | | | | Activ | | 300 MG CAPS | 2 times daily. | | | | | e | + + + +---------+------+------+-------+ | insulin degludec | Inject 38 Units | | | | | Activ | | (TRESIBA FLEXTOUCH) | under the skin | | | | | e | | 100 units/mL | nightly. | | | | | | | injection | | | | | | | + + + +---------+------+------+-------+ | metoprolol | Take 200 mg by mouth | | | | | Activ | | succinate | nightly. | | | | | e | | (TOPROL-XL) 200 mg | | | | | | | | ER tablet | | | | | | | + + + +---------+------+------+-------+ | torsemide | Take 20 mg by mouth | | | | | Activ | | (DEMADEX) 20 mg | every morning. | | | | | e | | tablet | | | | | | | + + + +---------+------+------+-------+ | potassium chloride | Take 20 mEq by mouth | | | | | Activ | | (KLOR-CON M20) 20 | Daily. | | | | | e | | mEq ER tablet | | | | | | | + + + +---------+------+------+-------+ | apixaban (ELIQUIS) | Take 5 mg by mouth 2 | | | | | Activ | | 5 mg tablet | times daily. | | | | | e | + + + +---------+------+------+-------+ | Red Yeast Rice 600 | Take 1 capsule by | | | | | Activ | | MG CAPS | mouth 2 times daily. | | | | | e | + + + +---------+------+------+-------+ | B Complex Vitamins | Take 1 tablet by | | | | | Activ | | (B COMPLEX 50) TABS | mouth Daily. | | | | | e | + + + +---------+------+------+-------+ | ECHINACEA EXTRACT | Take by mouth as | | | | | Activ | | PO | needed. | | | | | e | + + + +---------+------+------+-------+ | ibuprofen | Take 800 mg by mouth | | | | | Activ | | (ADVIL,MOTRIN) 800 | as needed for Pain. | | | | | e | | MG tablet | | | | | | | + + + +---------+------+------+-------+ | atorvaSTATin | Take 1 tablet by | 90 | 3 | 03/0 | | Activ | | (LIPITOR) 10 mg | mouth Daily. | tablet | | 7/20 | | e | | tablet | | | | 18 | | | + + + +---------+------+------+-------+ Active Problems + + + | Problem | Noted Date | + + + | Atrial fibrillation (HCC) | 12/27/2017 | + + + + + | Last Assessment & Plan: AF persists although with good rate | | control. I think it is worth trying to cardiovert her. | | Plan:GOLDEN/CV is scheduled for next week | + + + + + | Cardiomyopathy (HCC) | 12/27/2017 | + + + + + | Last Assessment & Plan: Hopefully this is a tachycardia | | induced CM and will resolve with rate control. We will look at | | her LV function with the GOLDEN when she undergoes CV. | + + + + + | Insomnia | 06/05/2015 | + + + | Excessive daytime sleepiness | 06/05/2015 | + + + | Polyp of colon - cecum | 07/18/2014 | + + + + + | Overview: Colonoscopy 18 Jul 2014 | + + + + + | Personal history of colonic polyps | 07/16/2014 | + + + + + | Overview: ICD-10 Record update | + + + + + | Back pain | 01/13/2014 | + + + | Sacroiliac joint dysfunction of both sides | 01/13/2014 | + + + | Abnormal posture | 01/13/2014 | + + + | DIAMOND (obstructive sleep apnea) | | + + + | OVERWEIGHT | | + + + + + | Overview: ICD-10 Record update | + + + +---+ | Diabetes mellitus, type II (HCC) | | + +---+ | Degenerative disc disease, cervical | | + +---+ | Spondylosis | | + +---+ | Anxiety | | + +---+ | Chronic back pain | | + +---+ | Dysthymia | | + +---+ | Rosacea | | + +---+ | Osteoporosis | | + +---+ | Hyperlipidemia | | + +---+ + + | Last Assessment & Plan: We discussed the merits of a statin, | | she is actually amenable to trying one. Plan:Lipitor 10mg | | dailyRepeat lipids with PCP in 3 months | |Repeat lipids with PCP in 3 months | + + + +---+ | Hypertension | | + +---+ Resolved Problems + + + + | Problem | Noted | Resolved | | | Date | Date | + + + + | Abdominal pain | 07/17/20 | | | | 14 | 5 | + + + + | Diarrhea | 07/16/20 | | | | 14 | 5 | + + + + | Abdominal pain, unspecified site | 07/16/20 | | | | 14 | 5 | + + + + + + | Overview: ICD-10 Record update | + + + + + + | Rib pain on left side | 01/14/20 | | | | 14 | 5 | + + + + | Walking difficulty due to pelvic region and thigh | 01/14/20 | | | | 14 | 5 | + + + + | Contusion, toe | 03/09/20 | | | | 12 | 3 | + + + + Encounters +--------+ + + + + | Date | Type | Specialty | Care Team | Description | +--------+ + + + + | 02/14/ | Telephone | | Sheri Hernandez | Rossi | | 2017 | | | MD Dante | | +--------+ + + + + | 01/15/ | Telephone | | Rochelle Coreas | Rossi [facility]) | | 2017 | | | ONIEL Russell | | +--------+ + + + + | 01/08/ | Hospital | | Sheri Hernandez | Paroxysmal atrial | | 2018 | Encounter | | MD Dante | fibrillation (HCC) | | | | | | (Primary Dx); Atrial | | | | | | fibrillation, | | | | | | unspecified type | | | | | | (HCC); | | | | | | Cardiomyopathy, | | | | | | unspecified type | | | | | | (HCC) | +--------+ + + + + | 01/08/ | Anesthesia | | Tomas Beyer, | | | 2017 | Event | | LEAD 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 | | +--------+ + + + + | 01/08/ | Procedure | | | | | 2017 | Pass | | | | +--------+ + + + + | 01/08/ | Surgery | | Sheri Hernandez | ECHO - | | 2017 | | | MD Dante | TRANSESEOPHAGEAL/CAR | | | | | | DIOVERSION | | | | | | ([id number]) | +--------+ + + + + | 01/03/ | Telephone | | Sheri Hernandez | Other | | 2018 | | | MD Dante | | +--------+ + + + + | 12/27/ | Office | | Sheri Hernandez | Atrial fibrillation, | | 2017 | Visit | | MD [facility] | unspecified type | | | | | | (HCC) (Primary Dx); | | | | | | Cardiomyopathy, | | | | | | unspecified type | | | | | | (HCC); | | | | | | Hyperlipidemia, | | | | | | unspecified | | | | | | hyperlipidemia type | +--------+ + + + + | 12/27/ | Ancillary | | Sheri Hernandez | Atrial fibrillation, | | 2018 | Orders | | MD [facility] | unspecified type | | | | | | (HCC) | +--------+ + + + + from Last 3 Months Immunizations + + + + | Name | Dates Previously Given | Next Due | + + + + | INFLUENZA, | 08/12/2015, 07/06/2014 | | | UNSPECIFIED | | | | FORMULATION | | | + + + + Family History + + +------+ + | Medical History | Relation | Name | Comments | + + +------+ + | Diabetes | Brother | | | + + +------+ + | Heart disease | Brother | | | + + +------+ + | Stroke | Brother | | | + + +------+ + | Cancer | Father | | head and neck | + + +------+ + | Diabetes | Father | | pre diabetic | + + +------+ + | Hypertension | Father | | | + + +------+ + | Diabetes | Mother | | | + + +------+ + | Heart disease | Mother | | | + + +------+ + | Hypertension | Mother | | | + + +------+ + | Stroke | Mother | | | + + +------+ + | Cancer | Sister | | unknown type | + + +------+ + | Breast cancer | Sister | | | + + +------+ + | Diabetes | Sister | | | + + +------+ + | Ovarian cancer | Sister | | | + + +------+ + + +------+ + + | Relation | Name | Status | Comments | + +------+ + + | Brother | | Alive | | + +------+ + + | Brother | | | heart disease | | | | (Age | | | | | 53) | | + +------+ + + | Father | | | heart rupture, due to radiation injury | | | | (Age | | | | | 60) | | + +------+ + + | Mother | | | stroke and [place] | | | | (Age | | | | | 73) | | + +------+ + + | Sister | | Alive | | + +------+ + + | Sister | | | diabetes, breast ca, ovarian ca | | | | (Age | | | | | 70) | | + +------+ + + Social History + +-------+ +--------+------+ | Tobacco Use | Types | Packs/Day | Years | Date | | | | | Used | | + +-------+ +--------+------+ | Never Smoker | | | | | + +-------+ +--------+------+ + +---+---+---+ | Smokeless Tobacco: | | | | | Never Used | | | | + +---+---+---+ + + | Tobacco Cessation: Counseling Given: No | + + + + +---------+ + | Alcohol Use | Drinks/We | oz/Week | Comments | | | ek | | | + + +---------+ + | No | 0 | 0.0 | | | | Standard | | | | | drinks or | | | | | | | | | | equivalen | | | | | t | | | + + +---------+ + + + + | Sex Assigned at | Date Recorded | | | | + + + | Not on file | | + + + Last Filed Vital Signs + + + + | Vital Sign | Reading | Time Taken | + + + + | Blood Pressure | 114/65 | 01/08/2018 1500 PDT | + + + + | Pulse | 64 | 01/08/2018 1500 PDT | + + + + | Temperature | 36.6 C (97.9 F) | 01/08/2018 1402 PDT | + + + + | Respiratory Rate | 17 | 01/08/2018 1500 PDT | + + + + | Oxygen Saturation | 96% | 01/08/2018 1430 PDT | + + + + | Inhaled Oxygen | - | - | | Concentration | | | + + + + | Weight | 91.2 kg (201 lb) | 01/08/20181117 PDT | + + + + | Height | 171.5 cm (5' 7.5") | 01/08/20181117 PDT | + + + + | Body Mass Index | 31.02 | 01/08/20181117 PDT | + + + + Plan of Treatment +--------+ + + + + | Date | Type | Specialty | Care Team | Description | +--------+ + + + + | 02/21/ | Office | | [facility] | | | 2017 | Visit | | TASHA Funes [address] | | | | | | [place] [address] | | | | | | [phone] | | | | | | | | +--------+ + + + + | 03/26/ | Appointment | | Sheri Hernandez | | | 2017 | | | MD Dante [address] | | | | | | [address] [place] | | | | | | [address] | | | | | | | | +--------+ + + + + | 03/26/ | Office | | Sheri Hernandez | | | 2017 | Visit | | MD Dante [address] | | | | | | [address] [place] | | | | | | [address] | | | | | | | | +--------+ + + + + | 06/11/ | Office | | Janay Kapoor MD | | | 2018 | Visit | | [address] | | | | | | [place] | | | | | | [address] | | | | | | | | +--------+ + + + + + + + + + | Health Maintenance | Due Date | Last Done | Comments | + + + + + | Hepatitis C | | | | | Screening | 3 | | | + + + + + | Diabetic Eye Exam | | | | | (Bi-Annually) | 1 | | | + + + + + | Diabetic Foot Exam | | | | | | 1 | | | + + + + + | Vaccine: | | | | | Dtap/Tdap/Td (1 - | 2 | | | | Tdap) | | | | + + + + + | Vaccine: | | | | | Pneumococcal 19-64 | 2 | | | | (PPSV23 only) Medium | | | | | Risk (1 of 1 - | | | | | PPSV23) | | | | + + + + + | CERVICAL CANCER | | | | | SCREENING (PAP EVERY | 4 | | | | 3 YEARS 21-64 ) | | | | + + + + + | BREAST CANCER | | | | | SCREENING (MAMM Q2 | 3 | | | | YEARS 50-74) | | | | + + + + + | Hemoglobin A1c Q3 | | 05/25/2015 | | | Months | 5 | | | + + + + + | Microalbumin | | 05/25/2015, 05/25/2015 | | | Screening | 6 | | | + + + + + | Vaccine: Influenza | | 08/12/2015, 07/06/2014 | | | (Season Ended) | 8 | | | + + + + + | COLON CANCER | | 07/18/2014 | | | SCREENING | 4 | | | | (COLONOSCOPY EVERY | | | | | 10 YEARS 50-75) | | | | + + + + + Procedures + +--------+ + + + | Procedure Name | Priori | Date/Time | Associated Diagnosis | Comments | | | ty | | | | + +--------+ + + + | ECHO - | | 01/08/2018 | Atrial | | | TRANSESEOPHAGEAL/CAR | | 1300 PDT | fibrillation, | | | DIOVERSION | | | unspecified type | | | ([id number]) | | | (HCC) | | + +--------+ + + + from Last 3 Months Results ECG - EXTERNAL SCAN (02/14/2018)Only the most recent of 3 results within the time period is included. + + | Narrative | + + | Ordered by an unspecified provider. | + + ECG 12 lead (01/08/2018 1415)Only the most recent of 2 results within the time period is in cluded. + + + | Specimen | Performing Laboratory | + + + | | NNEKA ESCOBAR [address] [place] [address] [place] [address] | + + + + + | Narrative | + + | HEART RATE:78 bpm RR Interval:769 ms Atrial Rate:78 ms P-R Interval:163 ms P | | Duration:0 ms P Horizontal [place]:-12 deg P Front [place]:0 deg Q Onset:516 ms QRSD | | Interval:92 ms QT Interval:404 ms QTcB:461 ms QTcF:441 ms QRS Horizontal [place]:15 deg | | QRS [place]:91 deg I-40 Horizontal [place]:42 deg I-40 Front [place]:70 deg T-40 Horizontal | | [place]:250 deg T-40 Front [place]:215 deg T Horizontal [place]:235 deg T Wave [place]:258 deg | | S-T Horizontal [place]:227 deg S-T Front [place]:254 deg Severity:- ABNORMAL ECG - | | INTERP:SINUS RHYTHM INTERP:RIGHT AXIS DEVIATION INTERP:ABNORMAL T, CONSIDER ISCHEMIA, | | DIFFUSE LEADS Electronically signed by: HELEN CHACON 01-11-2018 19:43:58 | + + ECHO Transesophageal (GOLDEN) (01/08/2018 1344) + +-------+ + | Component | Value | Ref Range | + +-------+ + | LVEF-GOLDEN | 30 | | | TRANSESOPHAGEAL ECHO | | | + +-------+ + + + | Narrative | + + | Transesophageal Echocardiography Report (GOLDEN) Demographics Patient Name | | SHAHAB SWENSON Room Number [facility] | | [place] Patient Number [id number] Date | | of Study 01/08/2018 Visit Number [id number] | | Interpreting David | | Sheri RASMUSSEN Number | | Physician FAC Date of | | 1955 Referring Physician Sheri Hernandez MD | | | | 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 | | Procedure Date Date: 01/08/2018Start: 12:58 PM Technical Quality: Good | | visualizationStudy Location: Echo Lab Indications: Atrial Fibrillation | | 427.31/I48.91. Patient Status: Routine Height: 67 inchesWeight: 201 poundsBSA: 2.03 | | m^2BMI: 31.48 kg/m^2 Rhythm: Atrial fibrillationHR: 96 bpmBP: 113/84 mmHg Type of | | Anesthesia: Conscious Sedation Conclusions Summary Left Ventricular size appears | | to be normal with an ejection fraction estimated at 30% Mildly enlarged right atrial | | size. Normal right ventricular size and function. Dilated left atrium. No evidence of | | thrombus or mass within left atrium. No thrombus is seen in the left atrial appendage. | | The mitral valve appears thickened with mildly restricted leaflet motion. Moderately | | severe mitral regurgitation. Aortic valve appears trileaflet. No evidence of aortic | | stenosis. No aortic regurgitation is noted. Structurally normal tricuspid valve | | without significant stenosis or regurgitation. Signature | | | | Electronically signed by Sheri Hernandez MD [facility](Interpreting physician) on | | 01/08/2018 03:14 PM | | | | Findings Mitral Valve The mitral valve appears thickened with mildly restricted | | leaflet motion. Moderately severe mitral regurgitation. Aortic Valve Aortic valve | | appears trileaflet. No evidence of aortic stenosis. No aortic regurgitation is noted. | | Tricuspid Valve Structurally normal tricuspid valve without significant stenosis or | | regurgitation. Left Atrium Dilated left atrium. No evidence of thrombus or mass | | within left atrium. No thrombus is seen in the left atrial appendage. Left Ventricle | | Left Ventricular size appears to be normal with an ejection fraction estimated at 30% | | Right Atrium Mildly enlarged right atrial size. Right Ventricle Normal right | | ventricular size and function. Pericardial Effusion No evidence of pericardial | | effusion. Structures Left Ventricle | + + + + | Procedure Note | + + | Jeffrey, Rad Results In - 01/08/2018 1514 PDT Transesophageal Echocardiography Report | | (GOLDEN) Demographics Patient Name SHAHAB SWENSON Room Number [facility] | | [place] Patient Number [id number] Date of Study 01/08/2018 | | Visit Number [id number] Interpreting | | Sheri Hernandez MD Number Physician FAC Date of | | 1955 Referring Physician Sheri Hernandez MD | | [facility] Age 62 year(s) Shank Paperer Gender | | Female 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 | | TechnicianProcedureType of Study GOLDEN procedure: ECHO Transesophageal (GOLDEN).Procedure | | DateDate: 01/08/2018Start: 12:58 PMTechnical Quality: Good visualizationStudy Location: | | Echo LabIndications: Atrial Fibrillation 427.31/I48.91.Patient Status: RoutineHeight: 67 | | inchesWeight: 201 poundsBSA: 2.03 m^2BMI: 31.48 kg/m^2Rhythm: Atrial fibrillationHR: 96 | | bpmBP: 113/84 mmHgType of Anesthesia: Conscious SedationConclusionsSummaryLeft | | Ventricular size appears to be normal with an ejection fractionestimated at 30%Mildly | | enlarged right atrial size.Normal right ventricular size and function.Dilated left | | atrium.No evidence of thrombus or mass within left atrium.No thrombus is seen in the | | left atrial appendage.The mitral valve appears thickened with mildly restricted leaflet | | motion.Moderately severe mitral regurgitation.Aortic valve appears trileaflet.No | | evidence of aortic stenosis.No aortic regurgitation is noted.Structurally normal | | tricuspid valve without significant stenosis | | orregurgitation.Signature | | Electronically signed by Sheri Hernandez MD [facility](Interpreting physician) | | on 01/08/2018 03:14 | | PM FindingsMi | | tral ValveThe mitral valve appears thickened with mildly restricted leaflet | | motion.Moderately severe mitral regurgitation.Aortic ValveAortic valve appears | | trileaflet.No evidence of aortic stenosis.No aortic regurgitation is noted.Tricuspid | | ValveStructurally normal tricuspid valve without significant stenosis | | orregurgitation.Left AtriumDilated left atrium.No evidence of thrombus or mass within | | left atrium.No thrombus is seen in the left atrial appendage.Left VentricleLeft | | Ventricular size appears to be normal with an ejection fractionestimated at 30%Right | | AtriumMildly enlarged right atrial size.Right VentricleNormal right ventricular size and | | function.Pericardial EffusionNo evidence of pericardial effusion.Structures Left | | Ventricle | |Indications: Atrial Fibrillation 427.31/I48.91. | | | |Patient Status: Routine | |Height: 67 inchesWeight: 201 poundsBSA: 2.03 m^2BMI: 31.48 kg/m^2 | |Rhythm: Atrial fibrillationHR: 96 bpmBP: 113/84 mmHg | | | |Type of Anesthesia: Conscious Sedation | | | |Conclusions | |Summary | |Left Ventricular size appears to be normal with an ejection fraction | |estimated at 30% | |Mildly enlarged right atrial size. | |Normal right ventricular size and function. | |Dilated left atrium. | |No evidence of thrombus or mass within left atrium. | |No thrombus is seen in the left atrial appendage. | |The mitral valve appears thickened with mildly restricted leaflet motion. | |Moderately severe mitral regurgitation. | |Aortic valve appears trileaflet. | |No evidence of aortic stenosis. | |No aortic regurgitation is noted. | |Structurally normal tricuspid valve without significant stenosis or | |regurgitation. | | | |Signature | | | | Electronically signed by Sheri Hernandez MD [facility] physician) | | on 01/08/2018 03:14 PM | | | | | |Findings | |Mitral Valve | |The mitral valve appears thickened with mildly restricted leaflet motion. | |Moderately severe mitral regurgitation. | |Aortic Valve | |Aortic valve appears trileaflet. | |No evidence of aortic stenosis. | |No aortic regurgitation is noted. | |Tricuspid Valve | |Structurally normal tricuspid valve without significant stenosis or | |regurgitation. | | | |Left Atrium | |Dilated left atrium. | |No evidence of thrombus or mass within left atrium. | |No thrombus is seen in the left atrial appendage. | |Left Ventricle | |Left Ventricular size appears to be normal with an ejection fraction | |estimated at 30% | |Right Atrium | |Mildly enlarged right atrial size. | |Right Ventricle | |Normal right ventricular size and function. | |Pericardial Effusion | |No evidence of pericardial effusion. | | | |Structures | | | | Left Ventricle | + + POC Glucose (01/08/2018 1125) + +---------+ + | Component | Value | Ref Range | + +---------+ + | Glucose, POC | 116 (H) | 65 - 99 mg/dL | + +---------+ + + + + | Specimen | Performing Laboratory | + + + | | [facility] [address] | | | [place] [address] | + + + Basic Metabolic Panel (01/08/2018 1120) + + + -----+ | Component | Value | Ref Range | + + + -----+ | NA | 144 | 135 - 145 mmo l/L | + + + -----+ | K | 4.1 | 3.5 - 5.0 mmo l/L | + + + -----+ | CL | 107 | 99 - 109 mmol /L | + + + -----+ | CO2 | 28 | 21 - 28 mmol/ L | + + + -----+ | GLUCOSE | 123 (H)Comment: [place] Diabetes | 65 - 99 mg/dL | | | Association diagnostic categories for non | | | | adults: Impaired fasting | | | | glucose 100 to 125 mg/dL. A fasting | | | | glucose result of 126 mg/dL or greater | | | | indicates diabetes if the abnormality is | | | | confirmed on a subsequent day. A random | | | | glucose result of greater than 200 mg/dL | | | | indicates diabetes if the abnormality is | | | | confirmed on a subsequent day. | | + + + -----+ | BUN | 17 | 8 - 25 mg/dL | + + + -----+ | Creatinine, | 0.89Comment: IDMS traceable creatinine | 0.50 - 1.00 m g/dL | | Serum/Plasma | | | + + + -----+ | CALCIUM | 9.6 | 8.5 - 10.2 mg /dL | + + + -----+ | ANION GAP | 9 | 5 - 16 mmol/L | + + + -----+ | Estimated GFR | >60Comment: GFR <60: Chronic kidney | >60 ml/min/1. 73m2 | | | disease, if found over a 3 month period.GFR | | | | <15: Kidney failure.For Americans, | | | | multiply the calculated GFR by 1.210 | | | |For Americans, multiply the calculated GFR by 1.210 | | | | | | + + + -----+ + + + | Specimen | Performing Laboratory | + + + | Blood | [facility] [address] | | | [place] [address] | + + + ECG 12 lead (12/27/2017 0900) + + | Narrative | + + | Cecil Cerrato CMA 12/27/2017 8:58 See scanned tracing for the provider's | | interpretation of EKG. | + + from Last 3 Months Insurance +-------+--------+ +------+-------+---------+ | Payer | Benefi | Subscriber | Type | Phone | Address | | | t Plan | ID | | | | | | / | | | | | | | Group | | | | | +-------+--------+ +------+-------+---------+ | BCBS | BCBS | xxxxxxxxxxx | PPO | | | | | OUT OF | x | | | | | | STATE | | | | | | | PPO | | | | | +-------+--------+ +------+-------+---------+ + +--------+ +--------+ + + | Guarantor Name | Accoun | Relation to | Date | Phone | Billing Address | | | t Type | Patient | of | | | | | | | | | | + +--------+ +--------+ + + | LEELA OVERTON | Person | Self | [birth year] Work: | [address] [place] | | | francy/Derek | | 1954 | [phone] [place] [address] | | | [address] | | | [phone]: | | | | | | | | | | | | | | [phone] | | | | | | | [phone] | | + +--------+ +--------+ + +
== END ==
LOC: ED 02:26
DX: K52.9 Noninfective gastroenteritis and colitis, unspecified (principal); E11.9 Type 2 diabetes mellitus without complications; E78.5 Hyperlipidemia, unspecified; Z79.4 Long term (current) use of insulin; Z79.899 Other long term (current) drug therapy
CPT/HCPCS: 80053; 85025; 96361; 96374; 99283; J2405; J7030